=== PATIENT | female | born 1940 | race Hispanic/Latino ===

== ENCOUNTER 2017-04-20 10:09 | Inpatient (IN) | payer MEDICARE, BC ==
--- NOTE | 2017-04-20 10:59 | C.PDOC ---
History Of Present Illness 77 yr old female with PMHx of quadruple bypass 19 years ago, presents to the ER with complaints of palpitations and SOb since morning. Patient states she feels weak and feels like she will pass out. Patient states she took aspirin last night. Patient denies fever, chest pain, nausea, vomiting, abdominal pain, neck pain, weakness or numbness. Time Seen by Provider: 04/20/17 10:22 Chief Complaint (Nursing): Shortness Of Breath History Per: Patient History/Exam Limitations: no limitations Onset/Duration Of Symptoms: Sudden Onset (since morning) Current Symptoms Are (Timing): Still Present Past Medical History Reviewed: Historical Data, Nursing Documentation, Vital Signs Vital Signs: Last Vital Signs Temp 98.4 F 04/22/17 08:16 Pulse 71 04/22/17 08:16 Resp 18 04/22/17 08:16 BP 146/67 04/22/17 08:16 Pulse Ox 100 04/22/17 08:52 - Medical History PMH: Hypercholesterolemia, Hyperlipidemia, Hypothyroidism Surgical History: CABG (1998) Family History: States: No Known Family Hx - Social History Hx Alcohol Use: No Hx Substance Use: No - Immunization History Hx Tetanus Toxoid Vaccination: No Hx Influenza Vaccination: Yes (11/2016) Hx Pneumococcal Vaccination: Yes (2014) Review Of Systems Except As Marked, All Systems Reviewed And Found Negative. Constitutional: Positive for: Weakness. Negative for: Fever Cardiovascular: Positive for: Palpitations. Negative for: Chest Pain Respiratory: Positive for: Shortness of Breath Gastrointestinal: Negative for: Nausea, Vomiting, Abdominal Pain Musculoskeletal: Negative for: Neck Pain Neurological: Negative for: Weakness, Numbness Physical Exam - Physical Exam Appears: Non-toxic, No Acute Distress Skin: Warm, Dry Eye(s): bilateral: Normal Inspection, PERRL, EOMI Oral Mucosa: Moist Chest: Symmetrical, No Tenderness Cardiovascular: Murmur (4/6 MARIE) Respiratory: Normal Breath Sounds, No Rales, No Rhonchi, No Stridor, No Wheezing Gastrointestinal/Abdominal: Normal Exam, Soft, No Tenderness, No Guarding, No Rebound Rectal: Hemorrhoids (external), Other (+ brown stool present, hemoccult positive ) Extremity: Normal ROM, No Swelling Neurological/Psych: Oriented x3, Normal Speech ED Course And Treatment - Laboratory Results Result Diagrams: 04/21/17 13:45 04/21/17 06:18 ECG: Interpreted By Me, Viewed By Me ECG Rhythm: Sinus Rhythm Interpretation Of ECG: Normal intervals. Normal axis. Non specific ST/T wave changes. Rate From EC (BPM) O2 Sat by Pulse Oximetry: 100 (RA) Pulse Ox Interpretation: Normal - Other Rad CXR X-Ray: Viewed By Me, Read By Radiologist Interpretation: PROCEDURE: CHEST RADIOGRAPH, 1 VIEW. HISTORY: chest pain. COMPARISON: None available. FINDINGS: LUNGS: Shallow lung volumes. The central pulmonary vasculature is accentuated - resulting in crowded vasculature. Discoid atelectasis and/or linear fibrosis left mid lung zone noted. Consolidation. PLEURA: No pneumothorax or pleural fluid seen. CARDIOVASCULAR: Mild cardiomegaly. Midline sternotomy and coronary artery bypass clips. The central pulmonary vasculature is accentuated - resulting in crowded vasculature. OSSEOUS STRUCTURES: Bilateral shoulder arthrosis. Midline sternotomy. VISUALIZED UPPER ABDOMEN: Normal. OTHER FINDINGS: None. IMPRESSION: Mild cardiomegaly. Shallow lung volumes limiting its assessment for any concomitant mild pulmonary venous congestion- at minimum crowding inferred. No effusion. Medical Decision Making Medical Decision Making: IMPRESSION: Palpitations, near syncope PLAN: * CXR * EKG * Labs Disposition Discussed With DrCharles: Pallavi Douglas-Katja Counseled Patient/Family Regarding: Studies Performed, Diagnosis - Disposition Disposition: HOSPITALIZED Disposition Time: 12:56 Condition: FAIR - Clinical Impression Clinical Impression: Chest pain, GI bleed, Anemia - Scribe Statement The provider has reviewed the documentation as recorded by the Lo Anthony Provider Attestation: All medical record entries made by the Lo were at my direction and personally dictated by me. I have reviewed the chart and agree that the record accurately reflects my personal performance of the history, physical exam, medical decision making, and the department course for this patient. I have also personally directed, reviewed, and agree with the discharge instructions and disposition.
--- NOTE | 2017-04-20 11:08 | RAD ---
PROCEDURE: CHEST RADIOGRAPH, 1 VIEW HISTORY: chest pain COMPARISON: None available. FINDINGS: LUNGS: Shallow lung volumes The central pulmonary vasculature is accentuated - resulting in crowded vasculature. Discoid atelectasis and/or linear fibrosis left mid lung zone noted. Consolidation. PLEURA: No pneumothorax or pleural fluid seen. CARDIOVASCULAR: Mild cardiomegaly. Midline sternotomy and coronary artery bypass clips. The central pulmonary vasculature is accentuated - resulting in crowded vasculature OSSEOUS STRUCTURES: Bilateral shoulder arthrosis. Midline sternotomy VISUALIZED UPPER ABDOMEN: Normal. OTHER FINDINGS: None. IMPRESSION: Mild cardiomegaly. Shallow lung volumes limiting its assessment for any concomitant mild pulmonary venous congestion- at minimum crowding inferred. No effusion.
[2017-04-20 11:11] LABS: BASO % 0.4 % (0.0-2.0); EOS % 0.3 % (0.0-4.0); LYMPH # 1.3 K/uL (1.0-4.3); LYMPH % 13.9 % (20.0-40.0); MEAN CELL VOLUME 87.7 fL (81.0-99.0); MEAN CORPUSCULAR HEMOGLOBIN 29.3 pg (27.0-31.0); MEAN CORPUSCULAR HGB CONC 33.4 g/dL (33.0-37.0); MONO # 0.5 K/uL (0.0-0.8); MONO % 4.7 % (0.0-10.0); NEUT # 7.8 K/uL (1.8-7.0); NEUT % 80.7 % (50.0-75.0); RBC 2.03 Mil/uL (3.80-5.20); RED CELL DISTRIBUTION WIDTH 15.3 % (11.5-14.5); WHITE BLOOD COUNT 9.7 K/uL (4.8-10.8)
[2017-04-20 11:15] LABS: PROTHROMBIN TIME 11.7 SECONDS (9.7-12.2)
[2017-04-20 11:27] LABS: ALB/GLOB RATIO 1.3 (1.0-2.1); ALBUMIN 3.6 g/dL (3.5-5.0); ALT/SGPT 16 U/L (9-52); AST/SGOT 23 U/L (14-36); BLOOD UREA NITROGEN 34 mg/dL (7-17); CALCIUM 9.4 mg/dl (8.6-10.4); GFR AFRICAN-AMERICAN > 60; GFR NON-AFRICAN AMERICAN 53
[2017-04-20 11:38] LABS: B-TYPE NATRIURETIC PEPTIDE 978 pg/mL (0-900)
[2017-04-20 20:31] LABS: IRON 52 ug/dL (37-170)
[2017-04-20 20:41] LABS: % IRON SATURATION 16 (20-55); TOTAL IRON BINDING CAPACITY 324 ug/dL (250-450)
[2017-04-20 21:05] LABS: FERRITIN 8.8 ng/mL
[2017-04-20 21:11] LABS: CK-MB 8.71 ng/mL (0.0-3.38); TROPONIN I 2.97 ng/mL (0.00-0.120)
--- NOTE | 2017-04-20 22:11 | CP.PCM.HP ---
History of Present Illness - History of Present Illness History of Present Illness: This is a 77 y/o female diabetic, hypertensive and hypothyroid with known history of CAD, s/p CABG many years back and s/p PCI within the last 10 years who was admitted because of 2-day history of tiredness and weakness, worsening shortness of breath on walking short distance. She was brought to the ER and was found to be severely anemic with Hgb of 6. The patient has history of chronic anemia running Hgb of 8-10 which she claims she has had all her life. She denies having any melena though she claims that her stools have been darker than usual but she has also been taking iron pills. She also takes Aspirin every night she claims before she goes to bed. She denies any abdominal pain, nausea, or vomiting. She does admit however that her appetite has not been as good these past two days as she felt full easily. She also denies any chest pain of palpitations. In the ER, she was also found to have an elevated troponin with no acute changes on the EKG. She is admitted for further evaluation and management. Present on Admission - Present on Admission Any Indicators Present on Admission: No History of DVT/PE: No History of Uncontrolled Diabetes: No Urinary Catheter: No Decubitus Ulcer Present: No Review of Systems - Review of Systems All systems: reviewed and no additional remarkable complaints except - Constitutional Constitutional: Fatigue, Weakness - Cardiovascular Cardiovascular: Dyspnea on Exertion - Gastrointestinal Gastrointestinal: Early Satiety - Musculoskeletal Musculoskeletal: Arthralgias, Muscle Cramps Past Patient History - Infectious Disease Hx of Infectious Diseases: None - Past Medical History & Family History Past Medical History?: Yes - Past Social History Smoking Status: Never Smoked Chewing Tobacco Use: No Cigar Use: No Alcohol: None Drugs: Denies Home Situation {Lives}: Alone - CARDIAC Hx Cardiac Disorders: Yes Hx Cardia Arrhythmia: Yes (Sinus Node Dysfunction) Hx Hypercholesterolemia: Yes Hx Hypertension: Yes - PULMONARY Hx Respiratory Disorders: No - NEUROLOGICAL Hx Neurological Disorder: No - HEENT Hx HEENT Problems: No - RENAL Hx Chronic Kidney Disease: No - ENDOCRINE/METABOLIC Hx Endocrine Disorders: Yes Hx Diabetes Mellitus Type 2: Yes Hx Hypothyroidism: Yes - HEMATOLOGICAL/ONCOLOGICAL Hx Blood Disorders: No Hx Anemia: Yes (she reports chronic anemia all her life) - INTEGUMENTARY Hx Dermatological Problems: No - MUSCULOSKELETAL/RHEUMATOLOGICAL Hx Musculoskeletal Disorders: No Hx Falls: No Hx Osteoarthritis: Yes - GASTROINTESTINAL Hx Gastrointestinal Disorders: No - GENITOURINARY/GYNECOLOGICAL Hx Genitourinary Disorders: No - PSYCHIATRIC Hx Psychophysiologic Disorder: No Hx Substance Use: No - SURGICAL HISTORY Hx Surgeries: Yes Hx Angioplasty: Yes Hx Cardiac Catheterization: Yes Hx Coronary Artery Bypass Graft: Yes (1998) Hx Coronary Stent: Yes - ANESTHESIA Hx Anesthesia: Yes Hx Anesthesia Reactions: No Hx Malignant Hyperthermia: No Has any member of the family had a problem w/ anesthesia?: No Meds Allergies/Adverse Reactions: Allergies Allergy/AdvReac Type Severity Reaction Status Date / Time No Known Allergies Allergy Verified 04/20/17 10:23 Physical Exam - Constitutional Appears: No Acute Distress - Head Exam Head Exam: NORMAL INSPECTION - Eye Exam Pupil Exam: PERRL - ENT Exam ENT Exam: Mucous Membranes Moist - Neck Exam Neck exam: Positive for: Normal Inspection - Respiratory Exam Respiratory Exam: Clear to Auscultation Bilateral, NORMAL BREATHING PATTERN - Cardiovascular Exam Cardiovascular Exam: REGULAR RHYTHM, +S1, +S2, Systolic Murmur - GI/Abdominal Exam GI & Abdominal Exam: Normal Bowel Sounds, Soft - Rectal Exam Additional comments: + occult blood - Neurological Exam Neurological exam: Alert, CN II-XII Intact, Normal Gait, Oriented x3 - Psychiatric Exam Psychiatric exam: Normal Affect, Normal Mood Results - Vital Signs Recent Vital Signs: Last Vital Signs Temp 98.4 F 04/20/17 21:01 Pulse 67 04/20/17 21:01 Resp 18 04/20/17 21:01 BP 133/68 04/20/17 21:01 Pulse Ox 96 04/20/17 20:03 - Labs Result Diagrams: 04/20/17 11:01 04/20/17 11:01 Labs: Laboratory Results - last 24 hr 04/20/17 04/20/17 04/20/17 11:01 11:01 11:01 WBC 9.7 RBC 2.03 L Hgb 6.0 L* Hct 17.8 L MCV 87.7 MCH 29.3 MCHC 33.4 RDW 15.3 H Plt Count 307 MPV 7.0 L Neut % (Auto) 80.7 H Lymph % (Auto) 13.9 L [place] % (Auto) 4.7 Eos % (Auto) 0.3 Baso % (Auto) 0.4 Neut # (Auto) 7.8 H Lymph # (Auto) 1.3 [place] # (Auto) 0.5 Eos # (Auto) 0.0 Baso # (Auto) 0.0 PT 11.7 INR 1.0 APTT 28 Sodium 137 Potassium 5.3 H Chloride 101 Carbon Dioxide 22 Anion Gap 19 BUN 34 H Creatinine 1.0 Est GFR ( Amer) > 60 Est GFR (Non-Af Amer) 53 POC Glucose (mg/dL) Random Glucose 185 H Calcium 9.4 Iron TIBC % Saturation Ferritin Total Bilirubin < 0.1 L AST 23 ALT 16 Alkaline Phosphatase 53 Total Creatine Kinase CK-MB (Mass) Troponin I 0.5510 H* NT-Pro-B Natriuret Pep 978 H Total Protein 6.4 Albumin 3.6 Globulin 2.8 Albumin/Globulin Ratio 1.3 Vitamin B12 TSH 3rd Generation 3.32 Blood Type Blood Type Confirm Antibody Screen 04/20/17 04/20/17 04/20/17 12:27 20:10 20:10 WBC RBC Hgb Hct MCV MCH MCHC RDW Plt Count MPV Neut % (Auto) Lymph % (Auto) [place] % (Auto) Eos % (Auto) Baso % (Auto) Neut # (Auto) Lymph # (Auto) [place] # (Auto) Eos # (Auto) Baso # (Auto) PT INR APTT Sodium Potassium Chloride Carbon Dioxide Anion Gap BUN Creatinine Est GFR ( Amer) Est GFR (Non-Af Amer) POC Glucose (mg/dL) Random Glucose Calcium Iron 52 TIBC 324 % Saturation 16 L Ferritin Total Bilirubin AST ALT Alkaline Phosphatase Total Creatine Kinase 47 CK-MB (Mass) 8.71 H Troponin I 2.9700 H* NT-Pro-B Natriuret Pep Total Protein Albumin Globulin Albumin/Globulin Ratio Vitamin B12 TSH 3rd Generation Blood Type A POSITIVE Blood Type Confirm A POSITIVE Antibody Screen Negative 04/20/17 04/20/17 20:10 21:24 WBC RBC Hgb Hct MCV MCH MCHC RDW Plt Count MPV Neut % (Auto) Lymph % (Auto) [place] % (Auto) Eos % (Auto) Baso % (Auto) Neut # (Auto) Lymph # (Auto) [place] # (Auto) Eos # (Auto) Baso # (Auto) PT INR APTT Sodium Potassium Chloride Carbon Dioxide Anion Gap BUN Creatinine Est GFR ( Amer) Est GFR (Non-Af Amer) POC Glucose (mg/dL) 114 H Random Glucose Calcium Iron TIBC % Saturation Ferritin 8.8 Total Bilirubin AST ALT Alkaline Phosphatase Total Creatine Kinase CK-MB (Mass) Troponin I NT-Pro-B Natriuret Pep Total Protein Albumin Globulin Albumin/Globulin Ratio Vitamin B12 869 TSH 3rd Generation Blood Type Blood Type Confirm Antibody Screen Assessment & Plan - Assessment and Plan (Free Text) Assessment: 1) Severe Anemia most probably due to GI Bleed. Patient has history of chronic anemia asymptomatic until 2 days ago. Sudden further drop in the H/H most likely due to GI Bleed, ?ASA induced, Bleeding Ulcer or Hemorrhagic gastritis. Will get GI and hematology evaluation. 2) Elevated troponin- noted 2nd test to have increased despite patient's absence of chest pain. Findings of increasing troponin, EKG changes of ischemia in patient with known history of severe CAD, consistent with NSTEMI. Will need to schedule endoscopy at a later time. 3) Diabetes Mellitus- on Accucheck and restarted on Metformin. 4) Hypertension- on antihypertensive meds to control same. 5) Hyperlipidemia- on statin.
[2017-04-21 07:00] LABS: ALB/GLOB RATIO 1.1 (1.0-2.1); ALBUMIN 3.3 g/dL (3.5-5.0); ALT/SGPT 26 U/L (9-52); AST/SGOT 33 U/L (14-36); BLOOD UREA NITROGEN 29 mg/dL (7-17); CALCIUM 9.2 mg/dl (8.6-10.4); GFR AFRICAN-AMERICAN > 60; GFR NON-AFRICAN AMERICAN 53
[2017-04-21] MEDS: Levothyroxine 112 MCG TAB PO SCH (07:00)
[2017-04-21 07:10] LABS: CK-MB 3.42 ng/mL (0.0-3.38)
[2017-04-21 07:15] LABS: MEAN CELL VOLUME 86.7 fL (81.0-99.0); MEAN CORPUSCULAR HEMOGLOBIN 30.3 pg (27.0-31.0); MEAN PLATELET VOLUME 7.3 fL (7.2-11.7); RBC 2.85 Mil/uL (3.80-5.20); RED CELL DISTRIBUTION WIDTH 14.8 % (11.5-14.5); WHITE BLOOD COUNT 10.5 K/uL (4.8-10.8)
[2017-04-21 07:19] LABS: HEMOGLOBIN 8.6 g/dL (11.0-16.0)
[2017-04-21] MEDS: Metoprolol Succinate 25 mg XL Tab PO SCH (09:18)
[2017-04-21] MEDS: Ferric Sodium Gluconat Complex 62.5 mg/5 ml Vial IVPB SCH (09:19)
[2017-04-21] MEDS: Calcium-Vit D 500 mg-200 Units Tab UD PO SCH (09:21)
[2017-04-21] MEDS ORDERED: Folic Acid/Ascorbic Acid/Ferrous Sulfate 1 Tab PO SCH (10:00)
[2017-04-21 13:51] LABS: HEMOGLOBIN 8.8 g/dL (11.0-16.0)
--- NOTE | 2017-04-21 14:08 | CP.PCM.CON ---
History of Present Illness - History of Present Illness History of Present Illness: This is a 77 year old woman with anemia. Patient has a history of CAD, S/P CABG 19 years ago. She states that she had a colonoscopy five years ago which showed no significant abnormalities. She presented to the ER 04/20/2017 with a two day history of weakness, lightheadedness, and shortness of breath on exertion. In the ER, she was found to be severely anemic with Hgb of 6. Of note, the patient has history of chronic anemia with HGB in the range of 8-10. She denies having rectal bleeding , but the stools have been darker than usual in the past two weeks. She takes iron regularly, but it does not cause consistently dark stools. She denies having abdominal pain, nausea, vomiting, heartburn, difficulty swallowing and loss of weight. Her appetite has been poor for the past two days. Stool for occult blood was checked in the ER and was positive. Troponin angie to 2.97 overnight, and CPK-MB to 8.7. The ferritin was low at 8.8, and the B12 level was normal. Folate level is pending. Review of Systems - Review of Systems All systems: reviewed and no additional remarkable complaints except - Constitutional Constitutional: Fatigue, Weakness - Cardiovascular Cardiovascular: Dyspnea on Exertion - Gastrointestinal Gastrointestinal: Melena. absent: Abdominal Pain, Constipation, Diarrhea, Dysphagia, Heartburn, Nausea, Vomiting Past Patient History - Infectious Disease Hx of Infectious Diseases: None - Past Medical History & Family History Past Medical History?: Yes - Past Social History Smoking Status: Never Smoked Chewing Tobacco Use: No Cigar Use: No Alcohol: None Drugs: Denies Home Situation {Lives}: Alone - CARDIAC Hx Cardiac Disorders: Yes Hx Cardia Arrhythmia: Yes (Sinus Node Dysfunction) Hx Hypercholesterolemia: Yes Hx Hypertension: Yes - PULMONARY Hx Respiratory Disorders: No - NEUROLOGICAL Hx Neurological Disorder: No - HEENT Hx HEENT Problems: No - RENAL Hx Chronic Kidney Disease: No - ENDOCRINE/METABOLIC Hx Endocrine Disorders: Yes Hx Diabetes Mellitus Type 2: Yes Hx Hypothyroidism: Yes - HEMATOLOGICAL/ONCOLOGICAL Hx Blood Disorders: No Hx Anemia: Yes (she reports chronic anemia all her life) - INTEGUMENTARY Hx Dermatological Problems: No - MUSCULOSKELETAL/RHEUMATOLOGICAL Hx Musculoskeletal Disorders: No Hx Falls: No Hx Osteoarthritis: Yes - GASTROINTESTINAL Hx Gastrointestinal Disorders: No - GENITOURINARY/GYNECOLOGICAL Hx Genitourinary Disorders: No - PSYCHIATRIC Hx Psychophysiologic Disorder: No Hx Substance Use: No - SURGICAL HISTORY Hx Surgeries: Yes Hx Angioplasty: Yes Hx Cardiac Catheterization: Yes Hx Coronary Artery Bypass Graft: Yes (1998) Hx Coronary Stent: Yes - ANESTHESIA Hx Anesthesia: Yes Hx Anesthesia Reactions: No Hx Malignant Hyperthermia: No Has any member of the family had a problem w/ anesthesia?: No Meds Allergies/Adverse Reactions: Allergies Allergy/AdvReac Type Severity Reaction Status Date / Time No Known Allergies Allergy Verified 04/20/17 10:23 - Medications Medications: Current Medications Ascorbic Ac/Ferrous Sulf/Folic Acid (Iberet-Folic 500) 1 ter PO DAILY [facility] Calcium/Vitamin D (Oyster Shell Calcium/Vitamin D 500 Mg-200 Iu) 1 tab PO DAILY [facility] Last Admin: 04/21/17 09:21 Dose: 1 tab Ferric Sodium Gluconate Complex (Ferrlecit) 125 mg IVPB DAILY [facility] Stop: 04/23/17 10:01 Last Admin: 04/21/17 09:19 Dose: 125 mg Levothyroxine Sodium (Synthroid) 112 mcg PO DAILY@0630 [facility] Last Admin: 04/21/17 07:00 Dose: 112 mcg Losartan Potassium (Cozaar) 100 mg PO DAILY [facility] Last Admin: 04/21/17 09:19 Dose: 100 mg Metformin HCl (Glucophage) 1,000 mg PO DAILY [facility] Last Admin: 04/21/17 09:18 Dose: 1,000 mg Metoprolol Succinate (Toprol Xl) 25 mg PO DAILY [facility] Last Admin: 04/21/17 09:18 Dose: 25 mg Multivitamins (Hexavitamin) 1 tab PO DAILY [facility] Pantoprazole Sodium (Protonix Inj) 40 mg IVP DAILY [facility] Last Admin: 04/21/17 09:17 Dose: 40 mg Rosuvastatin Calcium (Crestor) 5 mg PO HS [facility] Last Admin: 04/20/17 21:54 Dose: 5 mg Physical Exam - Constitutional Appears: No Acute Distress - Head Exam Head Exam: ATRAUMATIC, NORMOCEPHALIC - Eye Exam Eye Exam: EOMI, PERRL - Neck Exam Neck exam: Negative for: Lymphadenopathy, Thyromegaly - Respiratory Exam Respiratory Exam: NORMAL BREATHING PATTERN. absent: Rales, Rhonchi, Wheezes - Cardiovascular Exam Cardiovascular Exam: REGULAR RHYTHM, +S1, +S2. absent: Gallop, Rubs, Systolic Murmur - GI/Abdominal Exam GI & Abdominal Exam: Normal Bowel Sounds, Soft. absent: Mass, Organomegaly, Tenderness - Rectal Exam Rectal Exam: Deferred - Extremities Exam Extremities exam: Negative for: calf tenderness, pedal edema Results - Vital Signs Recent Vital Signs: Last Vital Signs Temp 98.5 F 04/21/17 08:56 Pulse 68 04/21/17 08:56 Resp 20 04/21/17 08:56 BP 121/62 04/21/17 08:56 Pulse Ox 96 04/21/17 08:56 - Labs Result Diagrams: 04/21/17 13:45 04/21/17 06:18 Labs: Laboratory Results - last 24 hr 04/20/17 04/20/17 04/20/17 12:27 20:10 20:10 WBC RBC Hgb Hct MCV MCH MCHC RDW Plt Count MPV Sodium Potassium Chloride Carbon Dioxide Anion Gap BUN Creatinine Est GFR ( Amer) Est GFR (Non-Af Amer) POC Glucose (mg/dL) Random Glucose Hemoglobin A1c Calcium Iron 52 TIBC 324 % Saturation 16 L Ferritin Total Bilirubin AST ALT Alkaline Phosphatase Total Creatine Kinase 47 CK-MB (Mass) 8.71 H Troponin I 2.9700 H* Total Protein Albumin Globulin Albumin/Globulin Ratio Vitamin B12 TSH 3rd Generation Blood Type A POSITIVE Blood Type Confirm A POSITIVE Antibody Screen Negative 04/20/17 04/20/17 04/21/17 20:10 21:24 06:11 WBC RBC Hgb Hct MCV MCH MCHC RDW Plt Count MPV Sodium Potassium Chloride Carbon Dioxide Anion Gap BUN Creatinine Est GFR ( Amer) Est GFR (Non-Af Amer) POC Glucose (mg/dL) 114 H 125 H Random Glucose Hemoglobin A1c Calcium Iron TIBC % Saturation Ferritin 8.8 Total Bilirubin AST ALT Alkaline Phosphatase Total Creatine Kinase CK-MB (Mass) Troponin I Total Protein Albumin Globulin Albumin/Globulin Ratio Vitamin B12 869 TSH 3rd Generation Blood Type Blood Type Confirm Antibody Screen 04/21/17 04/21/17 04/21/17 06:18 06:18 06:18 WBC 10.5 RBC 2.85 L Hgb 8.6 L D Hct 24.7 L MCV 86.7 MCH 30.3 MCHC 35.0 RDW 14.8 H Plt Count 300 MPV 7.3 Sodium 137 Potassium 4.4 Chloride 104 Carbon Dioxide 25 Anion Gap 12 BUN 29 H Creatinine 1.0 Est GFR ( Amer) > 60 Est GFR (Non-Af Amer) 53 POC Glucose (mg/dL) Random Glucose 114 H Hemoglobin A1c 6.0 Calcium 9.2 Iron TIBC % Saturation Ferritin 24.0 Total Bilirubin 1.3 AST 33 ALT 26 Alkaline Phosphatase 49 Total Creatine Kinase 35 CK-MB (Mass) 3.42 H Troponin I 2.4200 H* Total Protein 6.2 L Albumin 3.3 L Globulin 2.9 Albumin/Globulin Ratio 1.1 Vitamin B12 479 TSH 3rd Generation 4.25 Blood Type Blood Type Confirm Antibody Screen 04/21/17 04/21/17 11:24 13:45 WBC RBC Hgb 8.8 L Hct 25.2 L MCV MCH MCHC RDW Plt Count MPV Sodium Potassium Chloride Carbon Dioxide Anion Gap BUN Creatinine Est GFR ( Amer) Est GFR (Non-Af Amer) POC Glucose (mg/dL) 117 H Random Glucose Hemoglobin A1c Calcium Iron TIBC % Saturation Ferritin Total Bilirubin AST ALT Alkaline Phosphatase Total Creatine Kinase CK-MB (Mass) Troponin I Total Protein Albumin Globulin Albumin/Globulin Ratio Vitamin B12 TSH 3rd Generation Blood Type Blood Type Confirm Antibody Screen Assessment & Plan (1) Iron deficiency anemia Assessment and Plan: Patient has iron deficiency anemia on aspirin therapy. Rule out peptic ulcer, colon lesion. Work up should include EGD and colonoscopy, which will be scheduled when patient is cleared by Cardiology following NSTMI. These may be performed as an outpatient. Status: Acute
[2017-04-21 14:28] LABS: CK-MB 2.55 ng/mL (0.0-3.38); TROPONIN I 2.09 ng/mL (0.00-0.120)
--- NOTE | 2017-04-21 17:19 | CP.PCM.PN ---
Subjective - Date & Time of Evaluation Date of Evaluation: 04/21/17 Time of Evaluation: 16:45 - Subjective Subjective: Patient comfortable Had a bowel movement today passing very dark (?black) stools Received 2 units of blood transfusion yesterday and lates H/H 8.8/25.2 GI and Hematology consultation noted and appreciated Objective - Vital Signs/Intake and Output Vital Signs (last 24 hours): Temp Pulse Resp BP Pulse Ox 98.6 F 65 20 142/63 95 04/21/17 15:19 04/21/17 15:19 04/21/17 15:19 04/21/17 15:19 04/21/17 15:19 Intake and Output: 04/21/17 04/21/17 06:59 18:59 Intake Total 325 Balance 325 - Medications Medications: Current Medications Ascorbic Ac/Ferrous Sulf/Folic Acid (Iberet-Folic 500) 1 ter PO DAILY [facility] Calcium/Vitamin D (Oyster Shell Calcium/Vitamin D 500 Mg-200 Iu) 1 tab PO DAILY [facility] Last Admin: 04/21/17 09:21 Dose: 1 tab Ferric Sodium Gluconate Complex (Ferrlecit) 125 mg IVPB DAILY [facility] Stop: 04/23/17 10:01 Last Admin: 04/21/17 09:19 Dose: 125 mg Levothyroxine Sodium (Synthroid) 112 mcg PO DAILY@0630 [facility] Last Admin: 04/21/17 07:00 Dose: 112 mcg Losartan Potassium (Cozaar) 100 mg PO DAILY [facility] Last Admin: 04/21/17 09:19 Dose: 100 mg Metformin HCl (Glucophage) 1,000 mg PO DAILY [facility] Last Admin: 04/21/17 09:18 Dose: 1,000 mg Metoprolol Succinate (Toprol Xl) 25 mg PO DAILY [facility] Last Admin: 04/21/17 09:18 Dose: 25 mg Multivitamins (Hexavitamin) 1 tab PO DAILY [facility] Pantoprazole Sodium (Protonix Inj) 40 mg IVP DAILY [facility] Last Admin: 04/21/17 09:17 Dose: 40 mg Rosuvastatin Calcium (Crestor) 5 mg PO HS [facility] Last Admin: 04/20/17 21:54 Dose: 5 mg - Labs Labs: 04/21/17 13:45 04/21/17 06:18 PT 11.7 SECONDS (9.7-12.2) 04/20/17 11:01 INR 1.0 04/20/17 11:01 APTT 28 SECONDS (21-34) 04/20/17 11:01 - Constitutional Appears: No Acute Distress - Head Exam Head Exam: NORMAL INSPECTION - Neck Exam Neck Exam: Normal Inspection - Respiratory Exam Respiratory Exam: Clear to Ausculation Bilateral, NORMAL BREATHING PATTERN - Cardiovascular Exam Cardiovascular Exam: REGULAR RHYTHM, +S1, +S2 - GI/Abdominal Exam GI & Abdominal Exam: Soft, Normal Bowel Sounds - Extremities Exam Extremities Exam: Full ROM, Normal Inspection - Neurological Exam Neurological Exam: Alert, Awake, Oriented x3 - Skin Skin Exam: Dry, Intact, Normal Color, Warm Assessment and Plan - Assessment and Plan (Free Text) Assessment: 1) Severe Anemia- repeat H/H 8.8/25.2. there seems to be no active bleeding at this time but will check again tomorrow. GI consultation noted. Patient will need upper and lower endoscopy. may schedule outpatient. Hematology consultation noted. IV Iron ordered and given. 2) CAD- Elevated troponin- 3rd set still elevated but trending down. Ordered echocardiogram also for further evaluation 3) Diabetes Mellitus- on Accucheck and restarted on Metformin. Diet advanced 4) Hypertension- controlled 5) Hyperlipidemia- on statin.
--- NOTE | 2017-04-21 18:32 | CON ---
DATE: This is a 77-year-old woman with anemia. The patient said that she has been feeling very weak recently and having weakness of the legs and shortness of breath and presented to the hospital. She says that she takes iron pills as an outpatient for a long time, I am not too sure if she now ____. PHYSICAL EXAMINATION: SKIN: No petechiae. No bruises. HEENT: Anicteric. NODES: Nonpalpable in the axillary, cervical, supraclavicular or inguinal regions. LUNGS: Clear at present. No vertebral tenderness. HEART: S1 and S2. ABDOMEN: Shows no liver, no spleen, no tenderness. No rebound. EXTREMITIES: No edema. CENTRAL NERVOUS SYSTEM: No focal finding. The hemoglobin was about 8. The ferritin levels were low. The iron saturation was low. She has been put on p.o. iron, but I am going to give her intravenous Ferrlecit 125 mg today, but she is still in the hospital over the weekend. At this point, I think we will wait and see if there is a GI cause of this anemia. I told the daughter that if they did not find the GI cause, then they can make an appointment to see me for any further reasons, but right now it is going to end with GI. She feels much better after receiving 2 packs of red cells. Julian Last MD 8:43:01
[2017-04-21] MEDS: Multiple Vitamins Tab PO SCH (20:00)
[2017-04-22] MEDS: Levothyroxine 112 MCG TAB PO SCH (06:08)
[2017-04-22 08:16] VITALS: BP 146/67; PULSE 71; RESP 18; TEMP 98.4
--- NOTE | 2017-04-22 08:30 | CARD ---
APPROVED REPORT EXAM: Two-dimensional and M-mode echocardiogram with Doppler and color Doppler. Other Information Quality : GoodRhythm : INDICATION Dyspnea Cardiac Disease: CAD Chest Pain Non STEMI CARDIAC ARRYTHMIA Surgery/Intervention CABG: RISK FACTORS Hypertension Hyperlipidemia Diabetes 2D DIMENSIONS IVSd1.2 (0.7-1.1cm)LVDd3.8 (3.9-5.9cm) LVOT Diameter2.1 (1.8-2.4cm)PWd1.0 (0.7-1.1cm) LVDs2.6 (2.5-4.0cm)FS (%) 30.8 % LVEF (%)59.2 (>50%) M-Mode DIMENSIONS Left Atrium (MM)3.88 (2.5-4.0cm)Aortic Root2.86 (2.2-3.7cm) Aortic Cusp Exc.1.85 (1.5-2.0cm) Aortic Valve AoV Peak Vbiaxsho798.5cm/sAoV VTI85.4cmAO Peak GR.49mmHg LVOT Peak Guzzqdhm153.6cm/sLVOT VTI24.71cmAO Mean GR.31mmHg RAZ (VMAX)1.07iq7NMD (VTI)1.37iz0WC P 1/2 Udhd338pc Mitral Valve MV E Stdfvsgz458.0cm/sMV A Qihifksv92.8cm/sE/A ratio1.9 TDI E/Lateral E'0.0E/Medial E'0.0 Tricuspid Valve TR Peak Vtewtllg680gv/sTR Peak Gr.25unXfORKF99szIg LEFT VENTRICLE The left ventricle is normal size. There is borderline to mild asymmetric left ventricular hypertrophy. Left ventricle systolic function is normal. The Ejection Fraction is 55-60%. Nno regional wall motion abnormalities noted. The left ventricular diastolic function is normal. No left ventricle thrombus noted on this study. RIGHT VENTRICLE The right ventricle is normal size. The right ventricular systolic function is normal. ATRIA The left atrium size is normal. The right atrium size is normal. AORTIC VALVE The aortic valve is severely calcified. The aortic valve is trileaflet. There is mild aortic regurgitation. There is moderate valvular aortic stenosis. Calculated aortic valve area is 1.02 cm2 with maximum pressure gradient of 49 mmHg and mean pressure gradient of 31 mmHg. Cannot exclude aortic valvular vegetation. MITRAL VALVE Mitral annular calcification is moderate. There is no evidence of mitral valve prolapse. There is no mitral valve stenosis. Mitral regurgitation is mild to moderate. TRICUSPID VALVE The tricuspid valve is normal in structure. There is moderate tricuspid regurgitation. Right ventricular systolic pressure is estimated at 50-60 mmHg. There is moderate pulmonary hypertension. There is no tricuspid valve prolapse or vegetation. There is no tricuspid valve stenosis. PULMONIC VALVE The pulmonary valve is normal in structure. There is no pulmonic valvular regurgitation. There is no pulmonic valvular stenosis. GREAT VESSELS The aortic root is normal in size. The IVC collapses <50% with inspiration. PERICARDIAL EFFUSION There is no pericardial effusion. There is no pleural effusion. <Conclusion> There is borderline to mild asymmetric left ventricular hypertrophy. Left ventricle systolic function is normal. The Ejection Fraction is 55-60%. The left ventricular diastolic function is normal. The left atrium size is normal. The right atrium size is normal. The right ventricle is normal size. The right ventricular systolic function is normal. There is mild aortic regurgitation. There is moderate valvular aortic stenosis. Calculated aortic valve area is 1.02 cm2 with maximum pressure gradient of 49 mmHg and mean pressure gradient of 31 mmHg. Mitral regurgitation is mild to moderate. There is moderate tricuspid regurgitation. There is moderate pulmonary hypertension.
[2017-04-22 08:52] VITALS: O2SAT 100
--- NOTE | 2017-04-22 08:59 | CARD ---
APPROVED REPORT EKG Measurement Heart [id number] <Conclusion> Normal sinus rhythm ST & T wave abnormality, consider lateral ischemia Abnormal ECG
--- NOTE | 2017-04-22 08:59 | CARD ---
APPROVED REPORT EKG Measurement Heart [id number] <Conclusion> Normal sinus rhythm ST & T wave abnormality, consider lateral ischemia Abnormal ECG
[2017-04-22 09:12] LABS: BASO % 0.4 % (0.0-2.0); EOS # 0.1 K/uL (0.0-0.7); EOS % 0.8 % (0.0-4.0); HEMOGLOBIN 8.5 g/dL (11.0-16.0); LYMPH # 1.6 K/uL (1.0-4.3); LYMPH % 16.4 % (20.0-40.0); MEAN CELL VOLUME 87.7 fL (81.0-99.0); MEAN CORPUSCULAR HEMOGLOBIN 30.4 pg (27.0-31.0); MEAN CORPUSCULAR HGB CONC 34.7 g/dL (33.0-37.0); MEAN PLATELET VOLUME 7.2 fL (7.2-11.7); MONO % 10.6 % (0.0-10.0); NEUT % 71.8 % (50.0-75.0); RBC 2.81 Mil/uL (3.80-5.20); WHITE BLOOD COUNT 9.7 K/uL (4.8-10.8)
[2017-04-22 09:34] LABS: CK-MB 1.19 ng/mL (0.0-3.38)
[2017-04-22 09:36] LABS: ALB/GLOB RATIO 1.1 (1.0-2.1); ALBUMIN 3.4 g/dL (3.5-5.0); ALT/SGPT 19 U/L (9-52); AST/SGOT 29 U/L (14-36); BLOOD UREA NITROGEN 28 mg/dL (7-17); CALCIUM 9.4 mg/dl (8.6-10.4); GFR AFRICAN-AMERICAN > 60; GFR NON-AFRICAN AMERICAN > 60
[2017-04-22] MEDS: Multiple Vitamins Tab PO SCH (10:12)
[2017-04-22] MEDS: Metoprolol Succinate 25 mg XL Tab PO SCH (10:12)
[2017-04-22] MEDS: Ferric Sodium Gluconat Complex 62.5 mg/5 ml Vial IVPB SCH (10:13)
[2017-04-22] MEDS: Calcium-Vit D 500 mg-200 Units Tab UD PO SCH (10:15)
--- NOTE | 2017-04-22 10:43 | CP.PCM.PN ---
Subjective - Date & Time of Evaluation Date of Evaluation: 04/22/17 Time of Evaluation: 10:40 - Subjective Subjective: F/u anemia Covering Dr Gini Daughter Alexandria and Rn present Denies CP, SOB, fever, chills, abdo pain, RB, hematemesis, hemoptysis, hematuria , cough Dark stool- on iron. Objective - Vital Signs/Intake and Output Vital Signs (last 24 hours): Temp Pulse Resp BP Pulse Ox 98.4 F 71 18 146/67 100 04/22/17 08:16 04/22/17 08:16 04/22/17 08:16 04/22/17 08:16 04/22/17 08:53 - Medications Medications: Current Medications Ascorbic Ac/Ferrous Sulf/Folic Acid (Iberet-Folic 500) 1 ter PO DAILY [facility] Last Admin: 04/22/17 10:12 Dose: 1 ter Calcium/Vitamin D (Oyster Shell Calcium/Vitamin D 500 Mg-200 Iu) 1 tab PO DAILY [facility] Last Admin: 04/22/17 10:15 Dose: 1 tab Ferric Sodium Gluconate Complex (Ferrlecit) 125 mg IVPB DAILY [facility] Stop: 04/23/17 10:01 Last Admin: 04/22/17 10:13 Dose: 125 mg Levothyroxine Sodium (Synthroid) 112 mcg PO DAILY@0630 [facility] Last Admin: 04/22/17 06:08 Dose: 112 mcg Losartan Potassium (Cozaar) 100 mg PO DAILY [facility] Last Admin: 04/22/17 10:12 Dose: 100 mg Metformin HCl (Glucophage) 1,000 mg PO DAILY [facility] Last Admin: 04/22/17 10:12 Dose: 1,000 mg Metoprolol Succinate (Toprol Xl) 25 mg PO DAILY [facility] Last Admin: 04/22/17 10:12 Dose: 25 mg Multivitamins (Hexavitamin) 1 tab PO DAILY [facility] Last Admin: 04/22/17 10:12 Dose: 1 tab Pantoprazole Sodium (Protonix Inj) 40 mg IVP DAILY [facility] Last Admin: 04/22/17 10:12 Dose: 40 mg Rosuvastatin Calcium (Crestor) 5 mg PO HS [facility] Last Admin: 04/21/17 21:04 Dose: 5 mg - Labs Labs: 04/22/17 08:53 04/22/17 08:53 PT 11.7 SECONDS (9.7-12.2) 03/01/18 11:01 INR 1.0 04/20/17 11:01 APTT 28 SECONDS (21-34) 04/20/17 11:01 - Constitutional Appears: Well - Respiratory Exam Respiratory Exam: Clear to Ausculation Bilateral - Cardiovascular Exam Cardiovascular Exam: RRR - GI/Abdominal Exam GI & Abdominal Exam: Soft, Normal Bowel Sounds. absent: Guarding, Tenderness, Mass - Extremities Exam Extremities Exam: absent: Calf Tenderness - Neurological Exam Neurological Exam: Alert, Awake, Oriented x3 Assessment and Plan (1) Diabetes mellitus Status: Acute (2) Anemia Assessment & Plan: Chronic x yrs. + FH anemia and celiac. Consider celiac, AVMs, ulcer. Was taking ASA 325 mg qhs recently. Will need EGD and colon when cardicac stable. Consider capsule study in future. Check sm bowel at EGD. Check Hb. PPI Status: Acute (3) Chest pain Status: Acute (4) GI bleed Status: Acute (5) Iron deficiency anemia Status: Acute
--- NOTE | 2017-04-22 11:55 | CP.PCM.DIS ---
Provider - Provider Date of Admission: 04/20/17 12:53 Attending physician: Pallavi Infante MD Primary care physician: Justin Infante Consults: Arlette Rubalcava; Justin Last Time Spent in preparation of Discharge (in minutes): 45 Diagnosis - Discharge Diagnosis (1) GI bleed Status: Resolved Comment: H/H stable since admission after transfusion. GI following patient and will follow OP, too. Will continue with Protonix. (2) Non-ST elevation (NSTEMI) myocardial infarction Status: Resolved Comment: Patient off ASA and any anticoagulant due to bleed. Will follow up in the office and consider starting another blood thinner without GI side effects. (3) Aortic stenosis, severe Status: Chronic Comment: Echocardiogram reviewed- shows significant that will need further evaluation with cardiac cath. Discussed with family and will follow this further OP. (4) Iron deficiency anemia Status: Chronic Comment: Received IV iron ordered by [facility]. Advised to follow with [facility] OP. (5) Diabetes mellitus Status: Chronic Comment: controlled on current meds (6) Hypertension associated with diabetes Status: Chronic Comment: controlled on current meds. (7) Hyperlipidemia associated with type 2 diabetes mellitus Status: Chronic Comment: controlled on current med. Hospital Course - Lab Results Lab Results: Most Recent Lab Values WBC 9.7 K/uL (4.8-10.8) 04/22/17 08:53 RBC 2.81 Mil/uL (3.80-5.20) L 04/22/17 08:53 Hgb 8.5 g/dL (11.0-16.0) L 04/22/17 08:53 Hct 24.6 % (34.0-47.0) L 04/22/17 08:53 MCV 87.7 fL (81.0-99.0) 04/22/17 08:53 MCH 30.4 pg (27.0-31.0) 04/22/17 08:53 MCHC 34.7 g/dL (33.0-37.0) 04/22/17 08:53 RDW 15.0 % (11.5-14.5) H 04/22/17 08:53 Plt Count 306 K/uL (130-400) 04/22/17 08:53 MPV 7.2 fL (7.2-11.7) 04/22/17 08:53 Neut % (Auto) 71.8 % (50.0-75.0) 04/22/17 08:53 Lymph % (Auto) 16.4 % (20.0-40.0) L 04/22/17 08:53 Ceiba % (Auto) 10.6 % (0.0-10.0) H 04/22/17 08:53 Eos % (Auto) 0.8 % (0.0-4.0) 04/22/17 08:53 Baso % (Auto) 0.4 % (0.0-2.0) 04/22/17 08:53 Neut # (Auto) 7.0 K/uL (1.8-7.0) 04/22/17 08:53 Lymph # (Auto) 1.6 K/uL (1.0-4.3) 04/22/17 08:53 Ceiba # (Auto) 1.0 K/uL (0.0-0.8) H 04/22/17 08:53 Eos # (Auto) 0.1 K/uL (0.0-0.7) 04/22/17 08:53 Baso # (Auto) 0.0 K/uL (0.0-0.2) 04/22/17 08:53 Retic Count 3.7 % (0.5-1.5) H 04/21/17 17:15 PT 11.7 SECONDS (9.7-12.2) 04/20/17 11:01 INR 1.0 04/20/17 11:01 APTT 28 SECONDS (21-34) 04/20/17 11:01 Sodium 138 mmol/L (132-148) 04/22/17 08:53 Potassium 4.4 mmol/L (3.6-5.2) 04/22/17 08:53 Chloride 103 mmol/L (98-107) 04/22/17 08:53 Carbon Dioxide 24 mmol/L (22-30) 04/22/17 08:53 Anion Gap 15 (10-20) 04/22/17 08:53 BUN 28 mg/dL (7-17) H 04/22/17 08:53 Creatinine 0.9 mg/dL (0.7-1.2) 04/22/17 08:53 Est GFR ( Amer) > 60 04/22/17 08:53 Est GFR (Non-Af Amer) > 60 04/22/17 08:53 POC Glucose (mg/dL) 119 mg/dL (65-110) H 04/22/17 06:13 Random Glucose 122 mg/dL (65-105) H 04/22/17 08:53 Hemoglobin A1c 6.0 % (4.2-6.5) 04/21/17 06:18 Calcium 9.4 mg/dl (8.6-10.4) 04/22/17 08:53 Iron 52 ug/dL (37-170) 04/20/17 20:10 TIBC 324 ug/dL (250-450) 04/20/17 20:10 % Saturation 16 (20-55) L 04/20/17 20:10 Ferritin 24.0 ng/mL 04/21/17 06:18 Total Bilirubin 0.5 mg/dL (0.2-1.3) 04/22/17 08:53 AST 29 U/L (14-36) 04/22/17 08:53 ALT 19 U/L (9-52) 04/22/17 08:53 Alkaline Phosphatase 51 U/L (38-126) 04/22/17 08:53 Total Creatine Kinase 22 U/L (30-135) L 04/22/17 08:53 CK-MB (Mass) 1.19 ng/mL (0.0-3.38) 04/22/17 08:53 Troponin I 1.5800 ng/mL (0.00-0.120) H* 04/22/17 08:53 NT-Pro-B Natriuret Pep 978 pg/mL (0-900) H 04/20/17 11:01 Total Protein 6.5 g/dL (6.3-8.3) 04/22/17 08:53 Albumin 3.4 g/dL (3.5-5.0) L 04/22/17 08:53 Globulin 3.1 gm/dL (2.2-3.9) 04/22/17 08:53 Albumin/Globulin Ratio 1.1 (1.0-2.1) 04/22/17 08:53 Vitamin B12 479 pg/mL (239-931) 04/21/17 06:18 Folate > 20.0 ng/mL 04/21/17 17:15 TSH 3rd Generation 4.25 mIU/L (0.46-4.68) 04/21/17 06:18 Stool Occult Blood Positive (NEGATIVE) H 04/21/17 15:10 Blood Type A POSITIVE 04/20/17 12:27 Blood Type Confirm A POSITIVE 04/20/17 12:27 Antibody Screen Negative 04/20/17 12:27 Discharge Exam - Head Exam Head Exam: NORMAL INSPECTION - Eye Exam Eye Exam: Normal appearance, PERRL - Neck Exam Neck exam: Normal Inspection - Respiratory Exam Respiratory Exam: Clear to PA & Lateral, NORMAL BREATHING PATTERN - Cardiovascular Exam Cardiovascular Exam: RRR, +S1, +S2, Systolic Murmur - GI/Abdominal Exam GI & Abdominal Exam: Normal Bowel Sounds, Soft - Extremities Exam Extremities exam: pedal pulses present - Neurological Exam Neurological exam: Alert, Normal Gait, Oriented x3 - Psychiatric Exam Psychiatric exam: Normal Affect, Normal Mood - Skin Skin Exam: Dry, Intact, Normal Color, Warm Discharge Plan - Follow Up Plan Condition: FAIR Disposition: HOME/ ROUTINE
== END 2017-04-22 13:30 | disposition home or self-care (01) | DRG 281 ==
LOC: C.ER 10:09 → C.9E 12:53 → C.6T 17:24
PROVIDERS: ADMIT Internal Medicine Cardiovascular Disease; ATTEND Internal Medicine Cardiovascular Disease
PROC: 30233N1 Transfusion of Nonautologous Red Blood Cells into Peripheral Vein, Percutaneous Approach (ICD-10-PCS; principal; 2017-04-20)
DX: I21.4 Non-ST elevation (NSTEMI) myocardial infarction (principal); D50.0 Iron deficiency anemia secondary to blood loss (chronic); K92.2 Gastrointestinal hemorrhage, unspecified; E11.69 Type 2 diabetes mellitus with other specified complication; I15.2 Hypertension secondary to endocrine disorders; E03.9 Hypothyroidism, unspecified; I25.10 Atherosclerotic heart disease of native coronary artery without angina pectoris; E78.5 Hyperlipidemia, unspecified; E78.00 Pure hypercholesterolemia, unspecified; I35.0 Nonrheumatic aortic (valve) stenosis; Z95.5 Presence of coronary angioplasty implant and graft; Z95.1 Presence of aortocoronary bypass graft; Z79.82 Long term (current) use of aspirin

== ENCOUNTER 2017-04-29 08:43 | Inpatient (IN) | payer MEDICARE, BC ==
--- NOTE | 2017-04-29 09:47 | C.PDOC ---
History Of Present Illness Patient is a 77 y/o female who presents to the ED BIBA because daughter felt mother looked pale, admitting she felt lethargic. Patient has a Hx of GI bleeding without source and has had prior blood transfusions. Patient notes being admitted in transfusions last week. Patient is pending upper and lower endodoscopy with Dr. Rubalcava this week; admits normal colonoscopy and endoscopy 5 years ago. Notes having dark stools. No other physical complaints at this time. Time Seen by Provider: 04/29/17 09:18 Chief Complaint (Nursing): Weakness/Neurological Deficit History Per: Patient History/Exam Limitations: no limitations Onset/Duration Of Symptoms: Hrs Current Symptoms Are (Timing): Still Present Seizure Or Post-ictal Symptoms: None Fall Associated With With Symptoms: No Recent travel outside of the [place]: No Past Medical History Reviewed: Historical Data, Nursing Documentation, Vital Signs Vital Signs: Last Vital Signs Temp 98.5 F 04/29/17 11:24 Pulse 71 04/29/17 11:24 Resp 18 04/29/17 11:24 BP 127/54 L 04/29/17 11:24 Pulse Ox 100 04/29/17 11:24 - Medical History PMH: Anemia (she reports chronic anemia all her life), Cardia Arrhythmia (Sinus Node Dysfunction), HTN, Hypercholesterolemia, Hyperlipidemia, Hypothyroidism Denies: Chronic Kidney Disease Surgical History: CABG (1998), Coronary Stent, Endoscopy - [facility] Procedures TRANSFUSE NONAUT RED BLOOD CELLS IN PERIPH VEIN, PERC (04/20/17) Family History: States: No Known Family Hx - Social History Hx Tobacco Use: No Hx Alcohol Use: No Hx Substance Use: No - Immunization History Hx Tetanus Toxoid Vaccination: No Hx Influenza Vaccination: Yes (11/2016) Hx Pneumococcal Vaccination: Yes (2014) Review Of Systems Skin: Positive for: Other (pale) Neurological: Positive for: Other (felt lethargic ) Physical Exam - Physical Exam Skin: Pale Head: Atraumatic, Normacephalic Eye(s): bilateral: Conjunctiva Pale Oral Mucosa: Moist Chest: Symmetrical Cardiovascular: Rhythm Regular, Murmur (holosystolic murmur) Respiratory: Normal Breath Sounds, No Rales, No Rhonchi, No Wheezing Gastrointestinal/Abdominal: Soft, No Tenderness Neurological/Psych: Oriented x3, Normal Speech, Normal Cognition ED Course And Treatment - Laboratory Results Result Diagrams: 04/29/17 09:39 04/29/17 09:39 Lab Interpretation: No Changes Compared To Prior Results ECG: Interpreted By Me ECG Rhythm: Sinus Rhythm ECG Interpretation: Normal Rate From EC (bpm) O2 Sat by Pulse Oximetry: 92 Pulse Ox Interpretation: Abnormal - Radiology CXR: Interpreted by Me, Viewed By Me CXR Interpretation: Yes: Other (IMPRESSION:Linear atelectasis, left mid lung zone. Mild pulmonary venous congestion. Cardiomegaly. Median sternotomy wires with evidence of CABG.) Progress Note: blood type and cross, transfusions begun in ED Reevaluation Time: 11:08 Reassessment Condition: Improved - Physician Consult Information Outcome Of Conversation: 1100: d/w Dr. Chay Douglas- PMD- ok to admit. Will consult Dr. Morales GI Medical Decision Making Medical Decision Making: Blood work, EKG, CXR, and UA ordered. symptomatic anemia hgb 5.1, persistent GIB without source (for many years) with prior blood tx even last week. Disposition Doctor Will See Patient In The: Hospital Counseled Patient/Family Regarding: Studies Performed, Diagnosis - Disposition Disposition: HOSPITALIZED Disposition Time: 11:09 Condition: GOOD - Clinical Impression Clinical Impression: Signs and symptoms of anemia, GI (gastrointestinal bleed) - Scribe Statement The provider has reviewed the documentation as recorded by the Scribe Norma Reveles All medical record entries made by the Scribe were at my direction and personally dictated by me. I have reviewed the chart and agree that the record accurately reflects my personal performance of the history, physical exam, medical decision making, and the department course for this patient. I have also personally directed, reviewed, and agree with the discharge instructions and disposition.
[2017-04-29 09:50] LABS: BASO % 0.5 % (0.0-2.0); EOS % 0.4 % (0.0-4.0); LYMPH # 1.3 K/uL (1.0-4.3); LYMPH % 14.9 % (20.0-40.0); MEAN CORPUSCULAR HEMOGLOBIN 31.3 pg (27.0-31.0); MEAN CORPUSCULAR HGB CONC 34.4 g/dL (33.0-37.0); MONO # 0.5 K/uL (0.0-0.8); MONO % 5.3 % (0.0-10.0); NEUT # 6.8 K/uL (1.8-7.0); NEUT % 78.9 % (50.0-75.0); NRBC % 0.1 % (0.0-2.0); RBC 1.63 Mil/uL (3.80-5.20); RED CELL DISTRIBUTION WIDTH 16.1 % (11.5-14.5); WHITE BLOOD COUNT 8.6 K/uL (4.8-10.8)
[2017-04-29 09:55] LABS: HEMOGLOBIN 5.1 g/dL (11.0-16.0)
[2017-04-29 09:56] LABS: INR 1.2; PROTHROMBIN TIME 12.9 SECONDS (9.7-12.2)
[2017-04-29 10:06] LABS: ALB/GLOB RATIO 1.2 (1.0-2.1); ALBUMIN 3.3 g/dL (3.5-5.0); ALT/SGPT 25 U/L (9-52); AST/SGOT 21 U/L (14-36); BLOOD UREA NITROGEN 33 mg/dL (7-17); CALCIUM 8.9 mg/dl (8.6-10.4); GFR AFRICAN-AMERICAN > 60; GFR NON-AFRICAN AMERICAN > 60
--- NOTE | 2017-04-29 10:10 | RAD ---
HISTORY: SOB COMPARISON: Chest x-ray performed 04/20/17 TECHNIQUE: Chest, one view. FINDINGS: LUNGS: Linear atelectasis, left mid lung zone. Mild pulmonary venous congestion. Please note that chest x-ray has limited sensitivity for the detection of pulmonary masses. PLEURA: No significant pleural effusion identified. No definite pneumothorax . CARDIOVASCULAR: Median sternotomy wires with evidence of CABG. Cardiomegaly. OSSEOUS STRUCTURES: Osseous demineralization. Degenerative changes. VISUALIZED UPPER ABDOMEN: Unremarkable. OTHER FINDINGS: None. IMPRESSION: Linear atelectasis, left mid lung zone. Mild pulmonary venous congestion. Cardiomegaly. Median sternotomy wires with evidence of CABG.
--- NOTE | 2017-04-29 12:29 | CP.PCM.HP ---
History of Present Illness - History of Present Illness History of Present Illness: This is a 77 y/o female who was admitted through the ER because of shortness of breath, weakness and near syncope. She claims that she has been having diarrhea for several days now and has been passing dark stools. She denies any nausea or vomiting. No abdominal pain or tenderness. She was discharged a week ago because of GI Bleed (+Occult blood in stools and severe anemia) after stabilization with blood transfusion and administration of IV iron. She was followed up in the office and noted to be pale and weak. She had a blood count done which showed a marked drop in H/H to 07/06. She was thus advised to go back to the ER for further evaluation and management. Patient has been off ASA since last admission. Patient has known history of diabetes, hypertension, hypothyroidism, hyperlipidemia and significant CAD, S/P remote CABG. On last admission, patient had elevated troponin and nonspecific EKG changes consistent with NSTEMI. Echocardiogram showed low normal EF with severe aortic stenosis. Present on Admission - Present on Admission Any Indicators Present on Admission: No Review of Systems - Constitutional Constitutional: Fatigue, Weakness - EENT Eyes: As Per HPI Ears: As Per HPI - Cardiovascular Cardiovascular: Dyspnea on Exertion - Respiratory Respiratory: Dyspnea on Exertion - Gastrointestinal Gastrointestinal: Loose Stools, Melena - Neurological Neurological: Dizziness, Weakness Past Patient History - Infectious Disease Hx of Infectious Diseases: None - Past Medical History & Family History Past Medical History?: Yes - Past Social History Smoking Status: Never Smoked Chewing Tobacco Use: No Cigar Use: No Alcohol: None Drugs: Denies Home Situation {Lives}: Alone - CARDIAC Hx Cardiac Disorders: Yes Hx Cardia Arrhythmia: Yes (Sinus Node Dysfunction) Hx Hypercholesterolemia: Yes Hx Hypertension: Yes - PULMONARY Hx Respiratory Disorders: No - NEUROLOGICAL Hx Neurological Disorder: No - HEENT Hx HEENT Problems: No - RENAL Hx Chronic Kidney Disease: No - ENDOCRINE/METABOLIC Hx Endocrine Disorders: Yes Hx Diabetes Mellitus Type 2: Yes Hx Hypothyroidism: Yes - HEMATOLOGICAL/ONCOLOGICAL Hx Anemia: Yes (she reports chronic anemia all her life) - INTEGUMENTARY Hx Dermatological Problems: No - MUSCULOSKELETAL/RHEUMATOLOGICAL Hx Musculoskeletal Disorders: No Hx Falls: No Hx Osteoarthritis: Yes - GASTROINTESTINAL Hx Gastrointestinal Disorders: Yes Hx Diarrhea: Yes Hx Gastritis: Yes - GENITOURINARY/GYNECOLOGICAL Hx Genitourinary Disorders: No - PSYCHIATRIC Hx Psychophysiologic Disorder: No Hx Substance Use: No - SURGICAL HISTORY Hx Surgeries: Yes Hx Cardiac Catheterization: Yes Hx Coronary Artery Bypass Graft: Yes (1998) Hx Coronary Stent: No - ANESTHESIA Hx Anesthesia: Yes Hx Anesthesia Reactions: No Hx Malignant Hyperthermia: No Meds Allergies/Adverse Reactions: Allergies Allergy/AdvReac Type Severity Reaction Status Date / Time No Known Allergies Allergy Verified 04/20/17 10:23 Physical Exam - Constitutional Appears: No Acute Distress - Head Exam Head Exam: NORMAL INSPECTION - Eye Exam Eye Exam: Normal appearance Pupil Exam: NORMAL ACCOMODATION - ENT Exam ENT Exam: Mucous Membranes Moist, Normal Exam - Neck Exam Neck exam: Positive for: Normal Inspection - Respiratory Exam Respiratory Exam: Clear to Auscultation Bilateral, NORMAL BREATHING PATTERN - Cardiovascular Exam Cardiovascular Exam: REGULAR RHYTHM, +S1, +S2, Systolic Murmur - GI/Abdominal Exam GI & Abdominal Exam: Normal Bowel Sounds, Soft - Rectal Exam Rectal Exam: Deferred, Black Stool - Extremities Exam Extremities exam: Positive for: normal inspection, pedal pulses present Additional comments: Lwrist red, warm and tender on prressure consistent with phlebitis - Neurological Exam Neurological exam: Alert, Oriented x3 - Psychiatric Exam Psychiatric exam: Normal Affect, Normal Mood - Skin Skin Exam: Dry, Intact, Normal Color, Warm Results - Vital Signs Recent Vital Signs: Last Vital Signs Temp 98.5 F 04/29/17 11:24 Pulse 71 04/29/17 11:24 Resp 18 04/29/17 11:24 BP 127/54 L 04/29/17 11:24 Pulse Ox 92 L 04/29/17 11:29 - Labs Result Diagrams: 04/30/17 07:25 04/30/17 07:25 Labs: Laboratory Results - last 24 hr 04/29/17 04/29/17 04/29/17 09:39 09:39 09:39 WBC 8.6 RBC 1.63 L Hgb 5.1 L* D Hct 14.8 L MCV 91.0 D MCH 31.3 H MCHC 34.4 RDW 16.1 H Plt Count 344 MPV 7.0 L Neut % (Auto) 78.9 H Lymph % (Auto) 14.9 L Moody % (Auto) 5.3 Eos % (Auto) 0.4 Baso % (Auto) 0.5 Neut # (Auto) 6.8 Lymph # (Auto) 1.3 Moody # (Auto) 0.5 Eos # (Auto) 0.0 Baso # (Auto) 0.0 PT 12.9 H INR 1.2 APTT 26 Sodium 138 Potassium 4.5 Chloride 107 Carbon Dioxide 21 L Anion Gap 15 BUN 33 H Creatinine 0.9 Est GFR ( Amer) > 60 Est GFR (Non-Af Amer) > 60 Random Glucose 143 H Calcium 8.9 Total Bilirubin 0.1 L AST 21 ALT 25 Alkaline Phosphatase 48 Troponin I 0.0680 Total Protein 6.1 L Albumin 3.3 L Globulin 2.7 Albumin/Globulin Ratio 1.2 Blood Type Antibody Screen 04/29/17 09:41 WBC RBC Hgb Hct MCV MCH MCHC RDW Plt Count MPV Neut % (Auto) Lymph % (Auto) Moody % (Auto) Eos % (Auto) Baso % (Auto) Neut # (Auto) Lymph # (Auto) Moody # (Auto) Eos # (Auto) Baso # (Auto) PT INR APTT Sodium Potassium Chloride Carbon Dioxide Anion Gap BUN Creatinine Est GFR ( Amer) Est GFR (Non-Af Amer) Random Glucose Calcium Total Bilirubin AST ALT Alkaline Phosphatase Troponin I Total Protein Albumin Globulin Albumin/Globulin Ratio Blood Type A POSITIVE Antibody Screen Negative Assessment & Plan (1) GI (gastrointestinal bleed) Status: Acute Priority: High Comment: Most likely UGI. R/O PUD, Gastritis. Patient receiving blood transfusion and IV iron also ordered. Will request GI consultation. (2) Anemia Status: Acute Priority: High Comment: Patient has history of chronic anmei running Hgb of 9-10 and asymptomatic until lately when Hgb dropped to 5-6. Serum iron, TIBC, B12 and Folate levels requested. Monitor H/H Q 12 H (3) CAD, multiple vessel Status: Acute Priority: High Comment: Patient has elevated troponin today. Had NSTEMI last admission last week. Denies any chest pain but has shortness of breath with minimal exertion. Patient's last cath wa sin 2013 and found to have multivessel disease with 1 graft occluded with collaterals present. (4) Aortic stenosis, severe Status: Chronic Priority: High Comment: Patient had near syncope attributed to severe anemia but most likely a factor also. (5) Phlebitis Status: Acute Comment: L wrist tender, red and warm to touch . Site of previous IV insertion. Will start on po Cipro. (6) Diabetes mellitus Status: Ruled-out Priority: Medium Comment: Restarted back on diet and her diabetic meds. on Accucheck. Check HgbA1c (7) Hypertension associated with diabetes Status: Chronic Comment: controlled on current antihypertensives. (8) Hyperlipidemia associated with type 2 diabetes mellitus Status: Chronic Priority: Medium Comment: on statin. Decision To Admit - Pt Status Changed To: Hospital Disposition Of: Inpatient - Admit Certification Admit to Inpatient:: After my assessment, the patient will require hospitalization for at least two midnights. This is because of the severity of symptoms shown, intensity of services needed, and/or the medical risk in this patient being treated as an outpatient. - InPatient: Physician Admission Certification:: After my assessment, the patient will require hospitalization for at least two midnights. This is because of the severity of symptoms shown, intensity of services needed, and/or the medical risk in this patient being treated as an outpatient. - . Bed Request Type: Telemetry Admitting Physician: Pallavi Infante
[2017-04-29] MEDS: Metoprolol Succinate 25 mg XL Tab PO SCH (12:59)
[2017-04-29 14:07] LABS: IRON 39 ug/dL (37-170)
[2017-04-29 14:17] LABS: % IRON SATURATION 14 (20-55); TOTAL IRON BINDING CAPACITY 269 ug/dL (250-450)
[2017-04-29 14:25] LABS: CK-MB 1.85 ng/mL (0.0-3.38)
[2017-04-29 15:14] LABS: FOLATE > 20.0 ng/mL
--- NOTE | 2017-04-29 19:24 | CP.PCM.CON ---
History of Present Illness - History of Present Illness History of Present Illness: 77 yo female discharged one week ago for similar admission for anemia, GI blood loss and elevated cardiac enzymes. She was tranfused and GI work up was deferred due to cardiac clearance. She developed shortness of breath and was again found to be more anemic with hgb=5.1. ASA was stopped one week ago. She has been having dark stools that have been loose. Was due to have outpatient work up with Dr Rubalcava but readmitted for further blood loss. Also Bun/Cr ratio noted to be elevated. :No N/V. No CP, diaphoresis. Family says patient had EGD and colonoscopy 3-4 years ago and had reflux esophagitis, gastritis and no polyps or cancer. Review of Systems - Constitutional Constitutional: absent: Chills, Weight Loss - Cardiovascular Cardiovascular: As Per HPI, Dyspnea, Dyspnea on Exertion. absent: Chest Pain, Irregular Heart Rhythm - Respiratory Respiratory: Dyspnea - Gastrointestinal Gastrointestinal: As Per HPI Past Patient History - Infectious Disease Hx of Infectious Diseases: None - Past Medical History & Family History Past Medical History?: Yes - Past Social History Smoking Status: Never Smoked Chewing Tobacco Use: No Cigar Use: No Alcohol: None Drugs: Denies Home Situation {Lives}: Alone - CARDIAC Hx Cardiac Disorders: Yes Hx Cardia Arrhythmia: Yes (Sinus Node Dysfunction) Hx Hypercholesterolemia: Yes Hx Hypertension: Yes - PULMONARY Hx Respiratory Disorders: No - NEUROLOGICAL Hx Neurological Disorder: No - HEENT Hx HEENT Problems: No - RENAL Hx Chronic Kidney Disease: No - ENDOCRINE/METABOLIC Hx Endocrine Disorders: Yes Hx Diabetes Mellitus Type 2: Yes Hx Hypothyroidism: Yes - HEMATOLOGICAL/ONCOLOGICAL Hx Anemia: Yes (she reports chronic anemia all her life) Hx Cirrhosis: No Hx Hepatitis A: No Hx Hepatitis B: No Hx Hepatitis C: No Hx Human Immunodeficiency Virus (HIV): No - INTEGUMENTARY Hx Dermatological Problems: No - MUSCULOSKELETAL/RHEUMATOLOGICAL Hx Musculoskeletal Disorders: No Hx Falls: No Hx Osteoarthritis: Yes - GASTROINTESTINAL Hx Gastrointestinal Disorders: Yes Hx Clostridium Difficile: No Hx Colitis: No Hx Colostomy: No Hx Constipation: No Hx Crohn's Disease: No Hx Diarrhea: Yes Hx Diverticulitis: No Hx Esophageal Varices: No Hx Fatty Liver Disease: No Hx Gall Bladder Disease: No Hx Gastritis: Yes Hx Gastroesophageal Reflux: Yes Hx Hemorrhoids: No Hx Ileostomy: No Hx Irritable Bowel: No Hx Liver Failure: No Hx Nausea: No Hx Pancreatitis: No HX Swallowing Problems: No Hx Ulcer: No Hx Vomiting: No - GENITOURINARY/GYNECOLOGICAL Hx Genitourinary Disorders: No - PSYCHIATRIC Hx Psychophysiologic Disorder: No Hx Substance Use: No - SURGICAL HISTORY Hx Surgeries: Yes Hx Cardiac Catheterization: Yes Hx Coronary Artery Bypass Graft: Yes (1998) Hx Coronary Stent: No - ANESTHESIA Hx Anesthesia: Yes Hx Anesthesia Reactions: No Hx Malignant Hyperthermia: No Meds Allergies/Adverse Reactions: Allergies Allergy/AdvReac Type Severity Reaction Status Date / Time No Known Allergies Allergy Verified 04/20/17 10:23 - Medications Medications: Current Medications Ciprofloxacin (Cipro) 500 mg PO BID [facility] PRN Reason: Protocol Ferric Sodium Gluconate Complex (Ferrlecit) 125 mg IVPB DAILY [facility] Stop: 05/08/17 10:01 Sodium Chloride (Sodium Chloride 0.45%) 1,000 mls @ 50 mls/hr IV .Q20H [facility] Levothyroxine Sodium (Synthroid) 112 mcg PO DAILY [facility] Losartan Potassium (Cozaar) 100 mg PO QOD [facility] Metformin HCl (Glucophage) 1,000 mg PO DAILY [facility] Metoprolol Succinate (Toprol Xl) 25 mg PO DAILY [facility] Last Admin: 04/29/17 12:59 Dose: 25 mg Multivitamins/Minerals (Therapeutic-M Tab) 1 tab PO DAILY [facility] Pantoprazole Sodium (Protonix Inj) 40 mg IVP Q12H [facility] Rosuvastatin Calcium (Crestor) 5 mg PO HS [facility] Physical Exam - Constitutional Appears: No Acute Distress, Chronically Ill - Head Exam Head Exam: ATRAUMATIC, NORMOCEPHALIC - Eye Exam Eye Exam: EOMI, PERRL - Respiratory Exam Respiratory Exam: NORMAL BREATHING PATTERN - Cardiovascular Exam Cardiovascular Exam: REGULAR RHYTHM, +S1, Systolic Murmur - GI/Abdominal Exam GI & Abdominal Exam: Normal Bowel Sounds, Soft. absent: Distended, Mass, Rebound, Rigid, Tenderness - Rectal Exam Rectal Exam: Deferred - Extremities Exam Extremities exam: Positive for: normal inspection - Neurological Exam Neurological exam: Alert, Oriented x3 - Psychiatric Exam Psychiatric exam: Normal Affect, Normal Mood - Skin Skin Exam: Dry, Warm Results - Vital Signs Recent Vital Signs: Last Vital Signs Temp 98.3 F 04/29/17 17:30 Pulse 66 03/10/18 17:30 Resp 20 04/29/17 17:30 BP 127/56 L 04/29/17 17:30 Pulse Ox 99 04/29/17 17:30 - Labs Result Diagrams: 04/30/17 07:25 04/30/17 07:25 Labs: Laboratory Results - last 24 hr 04/29/17 04/29/17 04/29/17 09:39 09:39 09:39 WBC 8.6 RBC 1.63 L Hgb 5.1 L* D Hct 14.8 L MCV 91.0 D MCH 31.3 H MCHC 34.4 RDW 16.1 H Plt Count 344 MPV 7.0 L Neut % (Auto) 78.9 H Lymph % (Auto) 14.9 L [place] % (Auto) 5.3 Eos % (Auto) 0.4 Baso % (Auto) 0.5 Neut # (Auto) 6.8 Lymph # (Auto) 1.3 [place] # (Auto) 0.5 Eos # (Auto) 0.0 Baso # (Auto) 0.0 Retic Count PT 12.9 H INR 1.2 APTT 26 Sodium 138 Potassium 4.5 Chloride 107 Carbon Dioxide 21 L Anion Gap 15 BUN 33 H Creatinine 0.9 Est GFR ( Amer) > 60 Est GFR (Non-Af Amer) > 60 POC Glucose (mg/dL) Random Glucose 143 H Calcium 8.9 Iron TIBC % Saturation Total Bilirubin 0.1 L AST 21 ALT 25 Alkaline Phosphatase 48 Total Creatine Kinase CK-MB (Mass) Troponin I 0.0680 Total Protein 6.1 L Albumin 3.3 L Globulin 2.7 Albumin/Globulin Ratio 1.2 Vitamin B12 Folate Blood Type Antibody Screen 04/29/17 04/29/17 04/29/17 09:41 13:46 13:46 WBC RBC Hgb Hct MCV MCH MCHC RDW Plt Count MPV Neut % (Auto) Lymph % (Auto) [place] % (Auto) Eos % (Auto) Baso % (Auto) Neut # (Auto) Lymph # (Auto) [place] # (Auto) Eos # (Auto) Baso # (Auto) Retic Count PT INR APTT Sodium Potassium Chloride Carbon Dioxide Anion Gap BUN Creatinine Est GFR ( Amer) Est GFR (Non-Af Amer) POC Glucose (mg/dL) Random Glucose Calcium Iron 39 TIBC 269 % Saturation 14 L Total Bilirubin AST ALT Alkaline Phosphatase Total Creatine Kinase < 20 L CK-MB (Mass) 1.85 Troponin I 0.1250 H* Total Protein Albumin Globulin Albumin/Globulin Ratio Vitamin B12 427 Folate > 20.0 Blood Type A POSITIVE Antibody Screen Negative 04/29/17 04/29/17 13:46 17:33 WBC RBC Hgb Hct MCV MCH MCHC RDW Plt Count MPV Neut % (Auto) Lymph % (Auto) [place] % (Auto) Eos % (Auto) Baso % (Auto) Neut # (Auto) Lymph # (Auto) [place] # (Auto) Eos # (Auto) Baso # (Auto) Retic Count 6.3 H D PT INR APTT Sodium Potassium Chloride Carbon Dioxide Anion Gap BUN Creatinine Est GFR ( Amer) Est GFR (Non-Af Amer) POC Glucose (mg/dL) 195 H Random Glucose Calcium Iron TIBC % Saturation Total Bilirubin AST ALT Alkaline Phosphatase Total Creatine Kinase CK-MB (Mass) Troponin I Total Protein Albumin Globulin Albumin/Globulin Ratio Vitamin B12 Folate Blood Type Antibody Screen Assessment & Plan (1) Melena Assessment and Plan: In view of recurrent dark stools and drop in H/H (off ASA) I would advise expedited EGD when transfused to more acceptible H/H likely in am. The possibility of PUD with bleeding, erosive gastritis, bleeding angioectasia in setting or tight , occult malignancy to be excluded. UGI source appears to be most likely. Begin IV Protonix q12h clear liquid diet and then NPO Finish 2 unit PRBC transfusion EGD in am if cleared by Dr Douglas. The work up should not be deferred based on the event of the past week. Colonoscopy may be done electively based on results of EGD. Status: Acute (2) Anemia due to blood loss Assessment and Plan: As above Status: Acute (3) Aortic stenosis, severe Assessment and Plan: awaiting clearance for emergency EGD by Dr Douglas. She was messaged. Status: Chronic Priority: High (4) CAD, multiple vessel Assessment and Plan: Awaiting cardiac clearance for EGD. Failure to diagnose and treat an UGI lesion at this time could lead to an extensive infarct from blood loss. The benefits of an EGD at this time out weight the cardiac risk from a GI point of view. Status: Acute Priority: High
[2017-04-29] MEDS: Sodium Chloride 0.45% 1,000 ML IV SCH (20:02)
[2017-04-29 21:05] LABS: BASO % 0.4 % (0.0-2.0); EOS # 0.1 K/uL (0.0-0.7); EOS % 0.7 % (0.0-4.0); LYMPH # 2.5 K/uL (1.0-4.3); LYMPH % 23.1 % (20.0-40.0); MEAN CELL VOLUME 86.8 fL (81.0-99.0); MEAN CORPUSCULAR HEMOGLOBIN 29.9 pg (27.0-31.0); MEAN CORPUSCULAR HGB CONC 34.4 g/dL (33.0-37.0); MEAN PLATELET VOLUME 6.7 fL (7.2-11.7); NEUT # 7.1 K/uL (1.8-7.0); NEUT % 66.8 % (50.0-75.0); RBC 2.64 Mil/uL (3.80-5.20); RED CELL DISTRIBUTION WIDTH 15.5 % (11.5-14.5); WHITE BLOOD COUNT 10.7 K/uL (4.8-10.8)
[2017-04-29 21:14] LABS: HEMOGLOBIN 7.9 g/dL (11.0-16.0)
[2017-04-30 04:51] LABS: SQUAMOUS EPITHIAL < 1 /hpf (0-5); URINE BILIRUBIN NEGATIVE (NEGATIVE); URINE BLOOD NEGATIVE (NEGATIVE); URINE CLARITY Clear (Clear); URINE COLOR Colorless (YELLOW); URINE GLUCOSE (UA) NORMAL (Normal); URINE LEUKOCYTE ESTERASE TRACE Leu/uL (Negative); URINE PROTEIN NEGATIVE (NEGATIVE); URINE UROBILINOGEN NORMAL mg/dL (0.2-1.0)
[2017-04-30 07:41] LABS: HEMOGLOBIN 9.5 g/dL (11.0-16.0); MEAN CELL VOLUME 87.2 fL (81.0-99.0); MEAN CORPUSCULAR HEMOGLOBIN 30.2 pg (27.0-31.0); MEAN CORPUSCULAR HGB CONC 34.7 g/dL (33.0-37.0); RBC 3.15 Mil/uL (3.80-5.20); RED CELL DISTRIBUTION WIDTH 15.1 % (11.5-14.5); WHITE BLOOD COUNT 11.1 K/uL (4.8-10.8)
[2017-04-30 08:21] LABS: ALB/GLOB RATIO 1.1 (1.0-2.1); ALT/SGPT 24 U/L (9-52); AST/SGOT 25 U/L (14-36); BLOOD UREA NITROGEN 25 mg/dL (7-17); CALCIUM 8.5 mg/dl (8.6-10.4); GFR AFRICAN-AMERICAN > 60; GFR NON-AFRICAN AMERICAN > 60
[2017-04-30 08:29] LABS: CK-MB 1.25 ng/mL (0.0-3.38)
--- NOTE | 2017-04-30 09:02 | CP.PCM.PN ---
Subjective - Date & Time of Evaluation Date of Evaluation: 04/30/17 Time of Evaluation: 10:00 - Subjective Subjective: Patient comfortable- no bm since yesterday H/H 9.5/27.5 serum troponin- slightly elevated EKG- NSR, NSST T abnormality GI consult noted and appreciated Patient scheduled for upper endoscopy today- Patient's overall clinical condition relatively stable at this time despite high-risk and optimized for the procedure under present circumstances. Objective - Vital Signs/Intake and Output Vital Signs (last 24 hours): Temp Pulse Resp BP Pulse Ox 98.2 F 72 20 149/68 94 L 04/30/17 07:00 04/30/17 07:40 04/30/17 07:00 04/30/17 07:00 04/30/17 07:00 Intake and Output: 04/30/17 04/30/17 06:59 18:59 Intake Total Balance - Medications Medications: Current Medications Ciprofloxacin (Cipro) 500 mg PO BID [facility] PRN Reason: Protocol Last Admin: 04/29/17 19:59 Dose: 500 mg Ferric Sodium Gluconate Complex (Ferrlecit) 125 mg IVPB DAILY [facility] Stop: 05/08/17 10:01 Sodium Chloride (Sodium Chloride 0.45%) 1,000 mls @ 50 mls/hr IV .Q20H [facility] Last Admin: 04/29/17 20:02 Dose: 50 mls/hr Levothyroxine Sodium (Synthroid) 112 mcg PO DAILY [facility] Losartan Potassium (Cozaar) 100 mg PO QOD [facility] Metformin HCl (Glucophage) 1,000 mg PO DAILY [facility] Metoprolol Succinate (Toprol Xl) 25 mg PO DAILY [facility] Last Admin: 04/29/17 12:59 Dose: 25 mg Multivitamins/Minerals (Therapeutic-M Tab) 1 tab PO DAILY [facility] Pantoprazole Sodium (Protonix Inj) 40 mg IVP Q12H [facility] Last Admin: 04/29/17 20:02 Dose: 40 mg Rosuvastatin Calcium (Crestor) 5 mg PO HS [facility] Last Admin: 04/29/17 21:56 Dose: 5 mg - Labs Labs: 04/30/17 07:25 04/30/17 07:25 PT 12.9 SECONDS (9.7-12.2) H 04/29/17 09:39 INR 1.2 04/29/17 09:39 APTT 26 SECONDS (21-34) 04/29/17 09:39 Assessment and Plan (1) GI (gastrointestinal bleed) Assessment & Plan: GI consult noted and appreciated. Patient for upper endoscopy today. She is high -risk for same but in view of recurrent severe bleeding, will clear for procedure. Condition discussed with family and GI technical marketing consultant. Status: Acute (2) Anemia Assessment & Plan: H/H 9.5/27 today. Continue to monitor for bleeding. Status: Acute (3) CAD, multiple vessel Assessment & Plan: Has mildly elevated troponin and nonspecific changes on the EKG most likely due to severe ischemia from the very low H/H (5.1/17) on admission. Patient clinically stable at this time from cardiac standpoint. Cardio consult requested also for cardiac cath and for further evaluation for need for any procedure Status: Acute (4) Aortic stenosis, severe Assessment & Plan: Patient has history of OROZCO and near-syncope prior to admission most likely from sevee anemia but with significant , need to evaluate the severity also. Patient to be evaluated by invasive cardio. Status: Chronic (5) Phlebitis Assessment & Plan: Continue Cipro Status: Acute (6) Diabetes mellitus Assessment & Plan: controlled on current meds Status: Ruled-out (7) Hypertension associated with diabetes Assessment & Plan: controlled on current meds Status: Chronic (8) Hyperlipidemia associated with type 2 diabetes mellitus Assessment & Plan: stable Status: Chronic
[2017-04-30] MEDS ORDERED: FOLIC PO SCH (10:00)
[2017-04-30] MEDS ORDERED: IRON CARB PO SCH (10:00)
[2017-04-30] MEDS ORDERED: VIT C PO SCH (10:00)
[2017-04-30] MEDS ORDERED: VIT B12 PO SCH (10:00)
[2017-04-30] MEDS ORDERED: Levothyroxine 112 MCG TAB PO SCH (10:00)
[2017-04-30] MEDS ORDERED: Etomidate 20 mg/10ml Inj IV ONE (11:08)
--- NOTE | 2017-04-30 11:34 | CP.PCM.PN ---
Subjective - Date & Time of Evaluation Date of Evaluation: 04/30/17 Time of Evaluation: 11:32 - Subjective Subjective: EGD: small hiatal hernia and mild antral gastirits No bleeding lesion, ulcer or AVM. Case discussed with Dr Buchanan and family Will proceed to prep for colonoscopy tomorrow Patient to be transferred for TAVR with Dr Buchanan once GI cleared. Monitor for bleeding Objective - Vital Signs/Intake and Output Vital Signs (last 24 hours): Temp Pulse Resp BP Pulse Ox 98.2 F 72 20 149/68 94 L 04/30/17 07:00 04/30/17 07:40 04/30/17 07:00 04/30/17 07:00 04/30/17 07:00 Intake and Output: 04/30/17 04/30/17 06:59 18:59 Intake Total 0 Balance 0 - Medications Medications: Current Medications Ciprofloxacin (Cipro) 500 mg PO BID [facility] PRN Reason: Protocol Last Admin: 04/29/17 19:59 Dose: 500 mg Ferric Sodium Gluconate Complex (Ferrlecit) 125 mg IVPB DAILY [facility] Stop: 05/08/17 10:01 Sodium Chloride (Sodium Chloride 0.45%) 1,000 mls @ 50 mls/hr IV .Q20H [facility] Last Admin: 04/29/17 20:02 Dose: 50 mls/hr Levothyroxine Sodium (Synthroid) 112 mcg PO DAILY [facility] Losartan Potassium (Cozaar) 100 mg PO QOD [facility] Metformin HCl (Glucophage) 1,000 mg PO DAILY [facility] Metoprolol Succinate (Toprol Xl) 25 mg PO DAILY [facility] Last Admin: 04/29/17 12:59 Dose: 25 mg Multivitamins/Minerals (Therapeutic-M Tab) 1 tab PO DAILY [facility] Pantoprazole Sodium (Protonix Inj) 40 mg IVP Q12H [facility] Last Admin: 04/29/17 20:02 Dose: 40 mg Rosuvastatin Calcium (Crestor) 5 mg PO HS [facility] Last Admin: 04/29/17 21:56 Dose: 5 mg - Labs Labs: 04/30/17 07:25 04/30/17 07:25 PT 12.9 SECONDS (9.7-12.2) H 04/29/17 09:39 INR 1.2 04/29/17 09:39 APTT 26 SECONDS (21-34) 04/29/17 09:39 Assessment and Plan (1) Melena Status: Acute (2) Anemia due to blood loss Status: Acute (3) Aortic stenosis, severe Status: Chronic (4) CAD, multiple vessel Status: Acute
[2017-04-30] MEDS: Ferric Sodium Gluconat Complex 62.5 mg/5 ml Vial IVPB SCH (12:45)
[2017-04-30] MEDS: Multivitamin With Minerals Tab PO SCH (13:25)
[2017-04-30] MEDS: Metoprolol Succinate 25 mg XL Tab PO SCH (13:26)
[2017-04-30] MEDS: Sodium Chloride 0.45% 1,000 ML IV SCH (14:50)
[2017-04-30] MEDS ORDERED: Bisacodyl 5mg EC Tab PO ONE (17:00)
--- NOTE | 2017-04-30 18:09 | CP.PCM.CON ---
History of Present Illness - History of Present Illness History of Present Illness: Reason For Consultation: Severe HPI: 77 F with hx of CAD s/p CABG (>20 yrs ago), HTN, DM 2, Chronic GI bleeding admitted for dyspnea and near syncopial episode. Patient with guiac positive stools required PRBC transfusion. S/P EGD Review of Systems - Constitutional Constitutional: Fatigue - EENT Eyes: absent: Blurred Vision Ears: absent: Decreased Hearing Nose/Mouth/Throat: absent: Epistaxis - Cardiovascular Cardiovascular: Dyspnea - Respiratory Respiratory: Dyspnea - Gastrointestinal Gastrointestinal: Melena - Musculoskeletal Musculoskeletal: absent: Arthralgias - Psychiatric Psychiatric: absent: Anxiety Past Patient History - Infectious Disease Hx of Infectious Diseases: None - Past Medical History & Family History Past Medical History?: Yes - Past Social History Smoking Status: Never Smoked Chewing Tobacco Use: No Cigar Use: No Alcohol: None Drugs: Denies Home Situation {Lives}: Alone - CARDIAC Hx Cardiac Disorders: Yes Hx Cardia Arrhythmia: Yes (Sinus Node Dysfunction) Hx Hypercholesterolemia: Yes Hx Hypertension: Yes - PULMONARY Hx Respiratory Disorders: No - NEUROLOGICAL Hx Neurological Disorder: No - HEENT Hx HEENT Problems: No - RENAL Hx Chronic Kidney Disease: No - ENDOCRINE/METABOLIC Hx Endocrine Disorders: Yes Hx Diabetes Mellitus Type 2: Yes Hx Hypothyroidism: Yes - HEMATOLOGICAL/ONCOLOGICAL Hx Anemia: Yes (she reports chronic anemia all her life) Hx Cirrhosis: No Hx Hepatitis A: No Hx Hepatitis B: No Hx Hepatitis C: No Hx Human Immunodeficiency Virus (HIV): No - INTEGUMENTARY Hx Dermatological Problems: No - MUSCULOSKELETAL/RHEUMATOLOGICAL Hx Musculoskeletal Disorders: No Hx Falls: No Hx Osteoarthritis: Yes - GASTROINTESTINAL Hx Gastrointestinal Disorders: Yes Hx Clostridium Difficile: No Hx Colitis: No Hx Colostomy: No Hx Constipation: No Hx Crohn's Disease: No Hx Diarrhea: Yes Hx Diverticulitis: No Hx Esophageal Varices: No Hx Fatty Liver Disease: No Hx Gall Bladder Disease: No Hx Gastritis: Yes Hx Gastroesophageal Reflux: Yes Hx Hemorrhoids: No Hx Ileostomy: No Hx Irritable Bowel: No Hx Liver Failure: No Hx Nausea: No Hx Pancreatitis: No HX Swallowing Problems: No Hx Ulcer: No Hx Vomiting: No - GENITOURINARY/GYNECOLOGICAL Hx Genitourinary Disorders: No - PSYCHIATRIC Hx Psychophysiologic Disorder: No Hx Substance Use: No - SURGICAL HISTORY Hx Surgeries: Yes Hx Cardiac Catheterization: Yes Hx Coronary Artery Bypass Graft: Yes (1998) Hx Coronary Stent: No - ANESTHESIA Hx Anesthesia: Yes Hx Anesthesia Reactions: No Hx Malignant Hyperthermia: No Meds Allergies/Adverse Reactions: Allergies Allergy/AdvReac Type Severity Reaction Status Date / Time No Known Allergies Allergy Verified 04/20/17 10:23 - Medications Medications: Current Medications Ciprofloxacin (Cipro) 500 mg PO BID [facility] PRN Reason: Protocol Last Admin: 04/30/17 17:44 Dose: 500 mg Ferric Sodium Gluconate Complex (Ferrlecit) 125 mg IVPB DAILY [facility] Stop: 05/08/17 10:01 Last Admin: 04/30/17 12:45 Dose: 125 mg Sodium Chloride (Sodium Chloride 0.45%) 1,000 mls @ 50 mls/hr IV .Q20H [facility] Last Admin: 04/30/17 14:50 Dose: 50 mls/hr Levothyroxine Sodium (Synthroid) 112 mcg PO DAILY [facility] Last Admin: 04/30/17 10:00 Dose: Not Given Losartan Potassium (Cozaar) 100 mg PO QOD [facility] Last Admin: 04/30/17 13:26 Dose: 100 mg Metformin HCl (Glucophage) 1,000 mg PO DAILY [facility] Last Admin: 04/30/17 10:00 Dose: Not Given Metoprolol Succinate (Toprol Xl) 25 mg PO DAILY [facility] Last Admin: 04/30/17 13:26 Dose: 25 mg Multivitamins/Minerals (Therapeutic-M Tab) 1 tab PO DAILY [facility] Last Admin: 04/30/17 13:25 Dose: 1 tab Pantoprazole Sodium (Protonix Inj) 40 mg IVP Q12H [facility] Last Admin: 04/30/17 09:00 Dose: Not Given Polyethylene Glycol/Electrolytes (Golytely) 4,000 ml PO ONCE ONE Stop: 04/30/17 19:01 Rosuvastatin Calcium (Crestor) 5 mg PO HS [facility] Last Admin: 04/29/17 21:56 Dose: 5 mg Physical Exam - Head Exam Head Exam: ATRAUMATIC, NORMAL INSPECTION, NORMOCEPHALIC - Eye Exam Eye Exam: EOMI, Normal appearance, PERRL Pupil Exam: NORMAL ACCOMODATION, PERRL - ENT Exam ENT Exam: Mucous Membranes Moist, Normal Exam - Neck Exam Neck exam: Positive for: Normal Inspection - Respiratory Exam Respiratory Exam: Clear to Auscultation Bilateral, NORMAL BREATHING PATTERN - Cardiovascular Exam Cardiovascular Exam: REGULAR RHYTHM, +S1, +S2, Systolic Murmur - GI/Abdominal Exam GI & Abdominal Exam: Normal Bowel Sounds, Soft - Neurological Exam Neurological exam: Alert, CN II-XII Intact, Oriented x3, Reflexes Normal - Psychiatric Exam Psychiatric exam: Normal Mood - Skin Skin Exam: Warm Results - Vital Signs Recent Vital Signs: Last Vital Signs Temp 99.3 F 04/30/17 15:00 Pulse 72 04/30/17 15:00 Resp 20 04/30/17 15:00 BP 152/65 H 04/30/17 15:00 Pulse Ox 95 04/30/17 15:00 - Labs Result Diagrams: 04/30/17 07:25 04/30/17 07:25 Labs: Laboratory Results - last 24 hr 04/29/17 04/29/17 04/29/17 09:41 17:33 20:36 WBC RBC Hgb Hct MCV MCH MCHC RDW Plt Count MPV Neut % (Auto) Lymph % (Auto) Bee % (Auto) Eos % (Auto) Baso % (Auto) Neut # (Auto) Lymph # (Auto) Bee # (Auto) Eos # (Auto) Baso # (Auto) Sodium Potassium Chloride Carbon Dioxide Anion Gap BUN Creatinine Est GFR ( Amer) Est GFR (Non-Af Amer) POC Glucose (mg/dL) 195 H 161 H Random Glucose Hemoglobin A1c Calcium Total Bilirubin AST ALT Alkaline Phosphatase Total Creatine Kinase CK-MB (Mass) Troponin I Total Protein Albumin Globulin Albumin/Globulin Ratio Urine Color Urine Clarity Urine pH Ur Specific Lawrence Urine Protein Urine Glucose (UA) Urine Ketones Urine Blood Urine Nitrate Urine Bilirubin Urine Urobilinogen Ur Leukocyte Esterase Urine WBC (Auto) Urine RBC (Auto) Ur Squamous Epith Cells Stool Occult Blood Blood Type A POSITIVE Antibody Screen Negative 04/29/17 04/29/17 04/30/17 21:02 21:02 04:42 WBC 10.7 RBC 2.64 L Hgb 7.9 L D Hct 23.0 L MCV 86.8 D MCH 29.9 MCHC 34.4 RDW 15.5 H Plt Count 303 MPV 6.7 L Neut % (Auto) 66.8 Lymph % (Auto) 23.1 Bee % (Auto) 9.0 Eos % (Auto) 0.7 Baso % (Auto) 0.4 Neut # (Auto) 7.1 H Lymph # (Auto) 2.5 Bee # (Auto) 1.0 H Eos # (Auto) 0.1 Baso # (Auto) 0.0 Sodium Potassium Chloride Carbon Dioxide Anion Gap BUN Creatinine Est GFR ( Amer) Est GFR (Non-Af Amer) POC Glucose (mg/dL) Random Glucose Hemoglobin A1c Calcium Total Bilirubin AST ALT Alkaline Phosphatase Total Creatine Kinase CK-MB (Mass) Troponin I Total Protein Albumin Globulin Albumin/Globulin Ratio Urine Color Colorless Urine Clarity Clear Urine pH 5.0 Ur Specific Lawrence 1.010 Urine Protein Negative Urine Glucose (UA) Normal Urine Ketones Negative Urine Blood Negative Urine Nitrate Negative Urine Bilirubin Negative Urine Urobilinogen Normal Ur Leukocyte Esterase Trace Urine WBC (Auto) 7 H Urine RBC (Auto) < 1 Ur Squamous Epith Cells < 1 Stool Occult Blood Positive H Blood Type Antibody Screen 04/30/17 04/30/17 04/30/17 06:02 07:25 07:25 WBC 11.1 H RBC 3.15 L Hgb 9.5 L Hct 27.5 L MCV 87.2 MCH 30.2 MCHC 34.7 RDW 15.1 H Plt Count 302 MPV 7.0 L Neut % (Auto) Lymph % (Auto) Bee % (Auto) Eos % (Auto) Baso % (Auto) Neut # (Auto) Lymph # (Auto) Bee # (Auto) Eos # (Auto) Baso # (Auto) Sodium Potassium Chloride Carbon Dioxide Anion Gap BUN Creatinine Est GFR ( Amer) Est GFR (Non-Af Amer) POC Glucose (mg/dL) 136 H Random Glucose Hemoglobin A1c 5.8 Calcium Total Bilirubin AST ALT Alkaline Phosphatase Total Creatine Kinase CK-MB (Mass) Troponin I Total Protein Albumin Globulin Albumin/Globulin Ratio Urine Color Urine Clarity Urine pH Ur Specific Lawrence Urine Protein Urine Glucose (UA) Urine Ketones Urine Blood Urine Nitrate Urine Bilirubin Urine Urobilinogen Ur Leukocyte Esterase Urine WBC (Auto) Urine RBC (Auto) Ur Squamous Epith Cells Stool Occult Blood Blood Type Antibody Screen 04/30/17 04/30/17 07:25 16:08 WBC RBC Hgb Hct MCV MCH MCHC RDW Plt Count MPV Neut % (Auto) Lymph % (Auto) Bee % (Auto) Eos % (Auto) Baso % (Auto) Neut # (Auto) Lymph # (Auto) Bee # (Auto) Eos # (Auto) Baso # (Auto) Sodium 138 Potassium 4.3 Chloride 107 Carbon Dioxide 21 L Anion Gap 15 BUN 25 H Creatinine 0.9 Est GFR ( Amer) > 60 Est GFR (Non-Af Amer) > 60 POC Glucose (mg/dL) 184 H Random Glucose 115 H Hemoglobin A1c Calcium 8.5 L Total Bilirubin 0.3 AST 25 ALT 24 Alkaline Phosphatase 44 Total Creatine Kinase < 20 L CK-MB (Mass) 1.25 Troponin I 0.3420 H* Total Protein 5.6 L Albumin 3.0 L Globulin 2.6 Albumin/Globulin Ratio 1.1 Urine Color Urine Clarity Urine pH Ur Specific Lawrence Urine Protein Urine Glucose (UA) Urine Ketones Urine Blood Urine Nitrate Urine Bilirubin Urine Urobilinogen Ur Leukocyte Esterase Urine WBC (Auto) Urine RBC (Auto) Ur Squamous Epith Cells Stool Occult Blood Blood Type Antibody Screen Assessment & Plan - Assessment and Plan (Free Text) Assessment: 1. Aortic Stenosis: Severe (RAZ 1sq cm) 2. Hx of CAD s/p CABG Elevated Troponin most likely secondary to demand ischemia 3. Severe Pulmonary HTN and moderate MR 4. DM 2 5. HTN This Chronic GI bleeding most likely secondary to Severe . Patient likely needs TAVR which could potentially be curative for this chronic slow GIB and also likely improve her Pulmonary HTN and Mitral regurgitation. Will wait for Colonoscopy to be done tomorrow. Cardiac point of view cleared for Colonoscopy. If Colonoscopy is negative will initiate TAVR work up starting with Cardiac cath. Discussed with patient and family
[2017-04-30] MEDS ORDERED: Peg-Electrolyte Oral Soln 4L (Golytely) PO ONE (19:00)
[2017-05-01 06:52] LABS: HEMOGLOBIN 9.2 g/dL (11.0-16.0); MEAN CELL VOLUME 86.9 fL (81.0-99.0); MEAN CORPUSCULAR HEMOGLOBIN 30.2 pg (27.0-31.0); MEAN CORPUSCULAR HGB CONC 34.7 g/dL (33.0-37.0); MEAN PLATELET VOLUME 7.1 fL (7.2-11.7); RBC 3.03 Mil/uL (3.80-5.20); RED CELL DISTRIBUTION WIDTH 15.2 % (11.5-14.5); WHITE BLOOD COUNT 12.8 K/uL (4.8-10.8)
[2017-05-01 06:55] LABS: ALB/GLOB RATIO 1.1 (1.0-2.1); ALT/SGPT 22 U/L (9-52); AST/SGOT 20 U/L (14-36); BLOOD UREA NITROGEN 15 mg/dL (7-17); CALCIUM 8.4 mg/dl (8.6-10.4); GFR AFRICAN-AMERICAN > 60; GFR NON-AFRICAN AMERICAN > 60
[2017-05-01 07:05] LABS: CK-MB 1.05 ng/mL (0.0-3.38)
[2017-05-01] MEDS: Levothyroxine 112 MCG TAB PO SCH (07:56)
[2017-05-01] MEDS ORDERED: Propofol 10 mg/ml Inj (20 ML) ONE ×2 (08:34→09:06)
[2017-05-01] MEDS ORDERED: Etomidate 20 mg/10ml Inj IV ONE (08:34)
--- NOTE | 2017-05-01 09:15 | PCM.SURG1 ---
Surgeon's Initial Post Op Note - Surgeon's Notes Surgeon: Jamey Rubalcava Envelope Addresser: none Type of Anesthesia: MAC Pre-Operative Diagnosis: Lower GI bleed Operative Findings: Diverticula in sigmoid colon and transverse colon, lipoma of ileocecal valve, small internal hemorrhoids, small amount of old blood scattered throughout the colon, no fresh blood Post-Operative Diagnosis: Diverticulosis; lipoma of ileocecal valve; internal hemorrhoids Operation Performed: Colonoscopy Specimen/Specimens Removed: None Estimated Blood Loss: EBL {In ML}: 0 Date of Surgery/Procedure: 05/01/17 Time of Surgery/Procedure: 09:15
[2017-05-01] MEDS ORDERED: Barium Sulfate Susp 0.1% w/v, 0.1% w/w 450 mL Bottle PO ONE (10:28)
[2017-05-01] MEDS: Metoprolol Succinate 25 mg XL Tab PO SCH (10:44)
[2017-05-01] MEDS: Multivitamin With Minerals Tab PO SCH (10:44)
[2017-05-01] MEDS: Ferric Sodium Gluconat Complex 62.5 mg/5 ml Vial IVPB SCH (10:54)
[2017-05-01] MEDS: Sodium Chloride 0.45% 1,000 ML IV SCH (10:56)
--- NOTE | 2017-05-01 12:39 | CARD ---
APPROVED REPORT EKG Measurement Heart [id number] <Conclusion> Normal sinus rhythm Normal ECG
[2017-05-01] MEDS ORDERED: Iodixanol 320 MG/ML 100 ML BOTTLE IV ONE (15:06)
--- NOTE | 2017-05-01 16:09 | CP.PCM.PN ---
Subjective - Date & Time of Evaluation Date of Evaluation: 05/01/17 Time of Evaluation: 03:45 - Subjective Subjective: -Patient had upper endoscopy yesterday and colonoscopy this morning. No active bleeding site seen. -No gastric ulcer, +mild antral gastritis and small hiatal hernia seen on upper endoscopy, diverticulosis, ileoceal valve lipoma and internal hemorrhoids on colonoscopy -Patient comfortable. No chest pain, no shortness of breath,no abdominal discomfort -H/H 9.04/18 CMP- noted -Cardio consult noted- to be scheduled for cardiac cath and probable TAVR Objective - Vital Signs/Intake and Output Vital Signs (last 24 hours): Temp Pulse Resp BP Pulse Ox 98.4 F 68 20 154/73 H 96 05/01/17 15:42 05/01/17 15:42 05/01/17 15:42 05/01/17 15:42 05/01/17 15:42 Intake and Output: 05/01/17 05/01/17 06:59 18:59 Intake Total 3000 400 Output Total 1375 Balance 1625 400 - Medications Medications: Current Medications Ciprofloxacin (Cipro) 500 mg PO BID [facility] PRN Reason: Protocol Last Admin: 05/01/17 10:44 Dose: 500 mg Ferric Sodium Gluconate Complex (Ferrlecit) 125 mg IVPB DAILY [facility] Stop: 05/08/17 10:01 Last Admin: 05/01/17 10:54 Dose: 125 mg Sodium Chloride (Sodium Chloride 0.45%) 1,000 mls @ 50 mls/hr IV .Q20H [facility] Last Admin: 05/01/17 10:56 Dose: 50 mls/hr Levothyroxine Sodium (Synthroid) 112 mcg PO ACB [facility] Last Admin: 05/01/17 07:56 Dose: Not Given Losartan Potassium (Cozaar) 100 mg PO QOD [facility] Last Admin: 04/30/17 13:26 Dose: 100 mg Metformin HCl (Glucophage) 1,000 mg PO DAILY [facility] Last Admin: 05/01/17 11:18 Dose: Not Given Metoprolol Succinate (Toprol Xl) 25 mg PO DAILY [facility] Last Admin: 05/01/17 10:44 Dose: 25 mg Multivitamins/Minerals (Therapeutic-M Tab) 1 tab PO DAILY [facility] Last Admin: 05/01/17 10:44 Dose: 1 tab Pantoprazole Sodium (Protonix Inj) 40 mg IVP Q12H [facility] Last Admin: 05/01/17 07:47 Dose: 40 mg Rosuvastatin Calcium (Crestor) 5 mg PO HS [facility] Last Admin: 04/30/17 21:19 Dose: 5 mg - Labs Labs: 05/01/17 06:29 05/01/17 06:29 PT 12.9 SECONDS (9.7-12.2) H 04/29/17 09:39 INR 1.2 04/29/17 09:39 APTT 26 SECONDS (21-34) 04/29/17 09:39 - Constitutional Appears: No Acute Distress - Head Exam Head Exam: NORMAL INSPECTION - Eye Exam Eye Exam: Normal appearance, PERRL - ENT Exam ENT Exam: Mucous Membranes Moist, Normal Exam - Neck Exam Neck Exam: Normal Inspection - Respiratory Exam Respiratory Exam: Clear to Ausculation Bilateral, NORMAL BREATHING PATTERN - Cardiovascular Exam Cardiovascular Exam: REGULAR RHYTHM, +S1, +S2, Murmur - GI/Abdominal Exam GI & Abdominal Exam: Soft, Normal Bowel Sounds - Extremities Exam Extremities Exam: Normal Inspection - Neurological Exam Neurological Exam: Alert, Awake, Oriented x3 - Psychiatric Exam Psychiatric exam: Normal Affect, Normal Mood - Skin Skin Exam: Dry, Intact, Normal Color, Warm Assessment and Plan (1) GI (gastrointestinal bleed) Assessment & Plan: No active bleeding site noted. await CT Scan of the abdomen and pelvis result Status: Acute (2) Anemia Assessment & Plan: H/H stable so far. Will recheck tomorrow. Continue iron for now. Status: Acute (3) CAD, multiple vessel Assessment & Plan: no chest pain. troponin trending down EKG- NSST T abnormality Status: Acute (4) Aortic stenosis, severe Assessment & Plan: Cardio consult noted. planning for cardiac cath and probable TAVR Status: Chronic (5) Phlebitis Assessment & Plan: improving on the wrist but L antecubital area also red and swollen from fluid infusion Status: Acute (6) Diabetes mellitus Assessment & Plan: continue current Rx Status: Ruled-out (7) Hypertension associated with diabetes Assessment & Plan: stable Status: Chronic (8) Hyperlipidemia associated with type 2 diabetes mellitus Assessment & Plan: stable Status: Chronic
--- NOTE | 2017-05-01 16:28 | CT ---
PROCEDURE: CT Abdomen and Pelvis with contrast HISTORY: GI bleeding with negative EGD and colonoscopy COMPARISON: None. TECHNIQUE: Contrast dose: 100 mL Visipaque 320 Radiation dose: Total exam DLP = 562.47 mGy-cm. This CT exam was performed using one or more of the following dose reduction techniques: Automated exposure control, adjustment of the mA and/or kV according to patient size, and/or use of iterative reconstruction technique. FINDINGS: LOWER THORAX: Small bilateral pleural effusion, left greater than right. Minimal bilateral lower lobe compressive atelectasis. LIVER: Normal size and contour. No mass. No biliary dilatation. Nodular left lobe calcification consistent with old calcified granuloma. GALLBLADDER AND BILE DUCTS: Cholelithiasis without mural thickening or pericholecystic fluid. PANCREAS: Unremarkable. No gross lesion or ductal dilatation. SPLEEN: Unremarkable. ADRENALS: Unremarkable. No mass. KIDNEYS AND URETERS: Unremarkable. No hydronephrosis. No solid mass. VASCULATURE: Unremarkable. No aortic aneurysm. BOWEL: Moderate segment of what is most likely distal jejunum with mural thickening and enhancement. Nonspecific finding. This is unlikely to reflect neoplastic disease given the length of the involved segment. . Atypical for lymphoproliferative disease and no associated lymphadenopathy. More likely infectious or inflammatory origin. Sigmoid diverticulosis without evidence of diverticulitis. APPENDIX: No evidence of appendicitis. Small appendicolith identified incidentally. PERITONEUM: Unremarkable. No free fluid. No free air. LYMPH NODES: Unremarkable. No enlarged lymph nodes. BLADDER: Unremarkable. REPRODUCTIVE: Unremarkable uterus BONES: Compression deformity of the L1 vertebra of indeterminate age. Minimal bony retropulsion. Multilevel degenerative disc disease of the lumbar spine. OTHER FINDINGS: None. IMPRESSION: Moderate length segment of abnormal small bowel with mild mural thickening and enhancement. Likely infectious or inflammatory etiology. Cholelithiasis. Sigmoid diverticulosis. Small bilateral pleural effusion and lower lobe compressive atelectasis.
[2017-05-01 17:39] LABS: BASO % 0.3 % (0.0-2.0); EOS # 0.1 K/uL (0.0-0.7); EOS % 1.2 % (0.0-4.0); HEMOGLOBIN 9.2 g/dL (11.0-16.0); LYMPH # 1.6 K/uL (1.0-4.3); LYMPH % 14.5 % (20.0-40.0); MEAN CELL VOLUME 88.4 fL (81.0-99.0); MEAN CORPUSCULAR HEMOGLOBIN 30.2 pg (27.0-31.0); MEAN CORPUSCULAR HGB CONC 34.2 g/dL (33.0-37.0); MEAN PLATELET VOLUME 6.9 fL (7.2-11.7); MONO # 1.2 K/uL (0.0-0.8); MONO % 11.2 % (0.0-10.0); NEUT # 7.9 K/uL (1.8-7.0); NEUT % 72.8 % (50.0-75.0); RBC 3.04 Mil/uL (3.80-5.20); RED CELL DISTRIBUTION WIDTH 15.3 % (11.5-14.5); WHITE BLOOD COUNT 10.8 K/uL (4.8-10.8)
--- NOTE | 2017-05-01 20:25 | CARD ---
APPROVED REPORT EKG Measurement Heart [id number] <Conclusion> Sinus rhythm with 1st degree AV block Left ventricular hypertrophy with repolarization abnormality Abnormal ECG
--- NOTE | 2017-05-01 22:48 | CP.PCM.PN ---
Subjective - Date & Time of Evaluation Date of Evaluation: 05/01/17 Time of Evaluation: 19:30 - Subjective Subjective: Patient seen and evaluated S/P GI work up No significant source of bleeding found For Cardiac Cath ([facility]) tomorrow to assess coronaries, PA pressures and Aortic stenosis D/W Patient and daughter Review of Systems - Constitutional Constitutional: Fatigue - EENT Eyes: absent: Blurred Vision Ears: absent: Decreased Hearing Nose/Mouth/Throat: absent: Epistaxis - Cardiovascular Cardiovascular: Dyspnea - Respiratory Respiratory: Dyspnea - Gastrointestinal Gastrointestinal: Melena - Musculoskeletal Musculoskeletal: absent: Arthralgias - Psychiatric Psychiatric: absent: Anxiety Physical Exam - Head Exam Head Exam: ATRAUMATIC, NORMAL INSPECTION, NORMOCEPHALIC - Eye Exam Eye Exam: EOMI, Normal appearance, PERRL Pupil Exam: NORMAL ACCOMODATION, PERRL - ENT Exam ENT Exam: Mucous Membranes Moist, Normal Exam - Neck Exam Neck exam: Positive for: Normal Inspection - Respiratory Exam Respiratory Exam: Clear to Auscultation Bilateral, NORMAL BREATHING PATTERN - Cardiovascular Exam Cardiovascular Exam: REGULAR RHYTHM, +S1, +S2, Systolic Murmur - GI/Abdominal Exam GI & Abdominal Exam: Normal Bowel Sounds, Soft - Neurological Exam Neurological exam: Alert, CN II-XII Intact, Oriented x3, Reflexes Normal - Psychiatric Exam Psychiatric exam: Normal Mood - Skin Skin Exam: Warm Objective - Vital Signs/Intake and Output Vital Signs (last 24 hours): Temp Pulse Resp BP Pulse Ox 98.4 F 68 20 154/73 H 96 05/01/17 15:42 05/01/17 15:42 05/01/17 15:42 05/01/17 15:42 05/01/17 15:42 Intake and Output: 05/01/17 05/02/17 18:59 06:59 Intake Total 400 Balance 400 - Medications Medications: Current Medications Ciprofloxacin (Cipro) 500 mg PO BID [facility] PRN Reason: Protocol Last Admin: 05/01/17 17:41 Dose: 500 mg Ferric Sodium Gluconate Complex (Ferrlecit) 125 mg IVPB DAILY [facility] Stop: 05/08/17 10:01 Last Admin: 05/01/17 10:54 Dose: 125 mg Levothyroxine Sodium (Synthroid) 112 mcg PO ACB [facility] Last Admin: 05/01/17 07:56 Dose: Not Given Losartan Potassium (Cozaar) 100 mg PO QOD [facility] Last Admin: 04/30/17 13:26 Dose: 100 mg Metformin HCl (Glucophage) 1,000 mg PO DAILY [facility] Last Admin: 05/01/17 11:18 Dose: Not Given Metoprolol Succinate (Toprol Xl) 25 mg PO DAILY [facility] Last Admin: 05/01/17 10:44 Dose: 25 mg Multivitamins/Minerals (Therapeutic-M Tab) 1 tab PO DAILY [facility] Last Admin: 05/01/17 10:44 Dose: 1 tab Pantoprazole Sodium (Protonix Inj) 40 mg IVP Q12H [facility] Last Admin: 05/01/17 22:10 Dose: 40 mg Rosuvastatin Calcium (Crestor) 5 mg PO HS [facility] Last Admin: 05/01/17 22:09 Dose: 5 mg - Labs Labs: 05/01/17 17:24 05/01/17 06:29 PT 12.9 SECONDS (9.7-12.2) H 04/29/17 09:39 INR 1.2 04/29/17 09:39 APTT 26 SECONDS (21-34) 04/29/17 09:39 Assessment and Plan - Assessment and Plan (Free Text) Assessment: 1. Aortic Stenosis: Severe (RAZ 1sq cm) 2. Hx of CAD s/p CABG Elevated Troponin most likely secondary to demand ischemia 3. Severe Pulmonary HTN and moderate MR 4. DM 2 5. HTN
[2017-05-02] MEDS: Levothyroxine 112 MCG TAB PO SCH (06:30)
[2017-05-02 07:24] LABS: HEMOGLOBIN 7.9 g/dL (11.0-16.0); MEAN CORPUSCULAR HEMOGLOBIN 30.7 pg (27.0-31.0); MEAN CORPUSCULAR HGB CONC 34.9 g/dL (33.0-37.0); MEAN PLATELET VOLUME 6.9 fL (7.2-11.7); RBC 2.57 Mil/uL (3.80-5.20); WHITE BLOOD COUNT 9.2 K/uL (4.8-10.8)
[2017-05-02 07:25] LABS: INR 1.3
[2017-05-02 07:43] LABS: BLOOD UREA NITROGEN 13 mg/dL (7-17); GFR AFRICAN-AMERICAN > 60; GFR NON-AFRICAN AMERICAN > 60
[2017-05-02] MEDS: Multivitamin With Minerals Tab PO SCH (10:26)
[2017-05-02] MEDS: Metoprolol Succinate 25 mg XL Tab PO SCH (10:26)
[2017-05-02] MEDS: Ferric Sodium Gluconat Complex 62.5 mg/5 ml Vial IVPB SCH (10:47)
[2017-05-02] MEDS: (Novolog) Insulin Aspart, Recombinant 100 u/ml 10 ml vial SC SCH ×3 (13:31→22:01)
--- NOTE | 2017-05-02 16:42 | CP.PCM.PN ---
Subjective - Date & Time of Evaluation Date of Evaluation: 05/02/17 Time of Evaluation: 13:30 - Subjective Subjective: -Patient had bowel movement this morning and overnight passing stools with dark red blood -H/H noted to have dropped to 7.9/22.6.Getting blood transfusion at this time -VS stable, no abdominal pain, no chest pain -cardiac cath postponed due to drop in H/H -CT Scan of the abdomen and pelvis abnormal- showed moderate length of the small bowel with mild mural thickening probably of inflammatory or infectious origin. Exact etio ? Objective - Vital Signs/Intake and Output Vital Signs (last 24 hours): Temp Pulse Resp BP Pulse Ox 99.4 F 67 20 136/67 98 05/02/17 15:37 05/02/17 15:37 05/02/17 15:37 05/02/17 15:37 05/02/17 15:37 Intake and Output: 05/02/17 05/02/17 06:59 18:59 Intake Total 0 Balance 0 - Medications Medications: Current Medications Ciprofloxacin (Cipro) 500 mg PO BID [facility] PRN Reason: Protocol Last Admin: 05/02/17 10:26 Dose: 500 mg Ferric Sodium Gluconate Complex (Ferrlecit) 125 mg IVPB DAILY [facility] Stop: 05/08/17 10:01 Last Admin: 05/02/17 10:47 Dose: 125 mg Insulin Aspart (Novolog) 0 unit SC ACHS [facility] PRN Reason: Protocol Last Admin: 05/02/17 13:31 Dose: 8 unit Levothyroxine Sodium (Synthroid) 112 mcg PO ACB [facility] Last Admin: 05/02/17 06:30 Dose: 112 mcg Losartan Potassium (Cozaar) 100 mg PO QOD [facility] Last Admin: 05/02/17 10:26 Dose: 100 mg Metformin HCl (Glucophage) 1,000 mg PO DAILY [facility] Last Admin: 05/01/17 11:18 Dose: Not Given Metoprolol Succinate (Toprol Xl) 25 mg PO DAILY [facility] Last Admin: 05/02/17 10:26 Dose: 25 mg Multivitamins/Minerals (Therapeutic-M Tab) 1 tab PO DAILY [facility] Last Admin: 05/02/17 10:26 Dose: 1 tab Pantoprazole Sodium (Protonix Inj) 40 mg IVP Q12H [facility] Last Admin: 05/02/17 08:16 Dose: 40 mg Rosuvastatin Calcium (Crestor) 5 mg PO HS [facility] Last Admin: 05/01/17 22:09 Dose: 5 mg - Labs Labs: 05/02/17 07:12 05/02/17 07:12 PT 15.0 SECONDS (9.7-12.2) H 05/02/17 07:12 INR 1.3 05/02/17 07:12 APTT 26 SECONDS (21-34) 04/29/17 09:39 - Constitutional Appears: No Acute Distress - Head Exam Head Exam: NORMAL INSPECTION - Neck Exam Neck Exam: Normal Inspection - Respiratory Exam Respiratory Exam: NORMAL BREATHING PATTERN - Cardiovascular Exam Cardiovascular Exam: REGULAR RHYTHM, +S1, +S2, Murmur - GI/Abdominal Exam GI & Abdominal Exam: Soft, Normal Bowel Sounds - Extremities Exam Extremities Exam: Normal Inspection - Neurological Exam Neurological Exam: Alert, Oriented x3 - Psychiatric Exam Psychiatric exam: Normal Affect, Normal Mood - Skin Skin Exam: Dry, Intact, Warm Assessment and Plan (1) GI (gastrointestinal bleed) Status: Acute (2) Anemia Status: Acute (3) CAD, multiple vessel Status: Acute (4) Aortic stenosis, severe Status: Chronic (5) Phlebitis Status: Acute (6) Diabetes mellitus Status: Ruled-out (7) Hypertension associated with diabetes Status: Chronic (8) Hyperlipidemia associated with type 2 diabetes mellitus Status: Chronic
--- NOTE | 2017-05-02 17:14 | CP.PCM.PN ---
Subjective - Date & Time of Evaluation Date of Evaluation: 05/02/17 Time of Evaluation: 17:11 - Subjective Subjective: Patient denies having abdominal pain, nausea and vomiting. She had two dark bowel movements today, and the HGB dropped from 9.2 to 7.9. She received an additional unit of PRBCs. Objective - Vital Signs/Intake and Output Vital Signs (last 24 hours): Temp Pulse Resp BP Pulse Ox 99.4 F 67 20 136/67 98 05/02/17 15:37 05/02/17 15:37 05/02/17 15:37 05/02/17 15:37 05/02/17 15:37 Intake and Output: 05/02/17 05/02/17 06:59 18:59 Intake Total 0 Balance 0 - Medications Medications: Current Medications Ciprofloxacin (Cipro) 500 mg PO BID [facility] PRN Reason: Protocol Last Admin: 05/02/17 10:26 Dose: 500 mg Ferric Sodium Gluconate Complex (Ferrlecit) 125 mg IVPB DAILY [facility] Stop: 05/08/17 10:01 Last Admin: 05/02/17 10:47 Dose: 125 mg Insulin Aspart (Novolog) 0 unit SC ACHS ANDREW PRN Reason: Protocol Last Admin: 05/02/17 13:31 Dose: 8 unit Levothyroxine Sodium (Synthroid) 112 mcg PO ACB [facility] Last Admin: 05/02/17 06:30 Dose: 112 mcg Losartan Potassium (Cozaar) 100 mg PO QOD [facility] Last Admin: 05/02/17 10:26 Dose: 100 mg Metformin HCl (Glucophage) 1,000 mg PO DAILY [facility] Last Admin: 05/01/17 11:18 Dose: Not Given Metoprolol Succinate (Toprol Xl) 25 mg PO DAILY [facility] Last Admin: 05/02/17 10:26 Dose: 25 mg Multivitamins/Minerals (Therapeutic-M Tab) 1 tab PO DAILY [facility] Last Admin: 05/02/17 10:26 Dose: 1 tab Pantoprazole Sodium (Protonix Inj) 40 mg IVP Q12H [facility] Last Admin: 05/02/17 08:16 Dose: 40 mg Rosuvastatin Calcium (Crestor) 5 mg PO HS [facility] Last Admin: 05/01/17 22:09 Dose: 5 mg - Labs Labs: 05/02/17 07:12 05/02/17 07:12 PT 15.0 SECONDS (9.7-12.2) H 05/02/17 07:12 INR 1.3 05/02/17 07:12 APTT 26 SECONDS (21-34) 04/29/17 09:39 - Constitutional Appears: No Acute Distress - Head Exam Head Exam: ATRAUMATIC, NORMOCEPHALIC - Eye Exam Eye Exam: EOMI, PERRL - Neck Exam Neck Exam: absent: Lymphadenopathy, Thyromegaly - Respiratory Exam Respiratory Exam: NORMAL BREATHING PATTERN. absent: Rales, Rhonchi, Wheezes - Cardiovascular Exam Cardiovascular Exam: REGULAR RHYTHM, +S1, +S2. absent: Gallop, Rubs, Murmur - GI/Abdominal Exam GI & Abdominal Exam: Soft, Normal Bowel Sounds. absent: Tenderness, Mass, Organomegaly - Rectal Exam Rectal Exam: absent: Deferred - Extremities Exam Extremities Exam: absent: Calf Tenderness, Pedal Edema Assessment and Plan (1) GI (gastrointestinal bleed) Assessment & Plan: Patient continues to pass dark stools, and required an additional unit of PRBCs today. CT scan showed non specific thickening of the wall of the distal jejunum. Plan is for cardiac catheterization tomorrow and capsule endoscopy as an outpatient. Status: Acute
[2017-05-02 19:56] LABS: HEMOGLOBIN 9.2 g/dL (11.0-16.0); MEAN CELL VOLUME 87.8 fL (81.0-99.0); MEAN CORPUSCULAR HEMOGLOBIN 29.7 pg (27.0-31.0); MEAN CORPUSCULAR HGB CONC 33.8 g/dL (33.0-37.0); MEAN PLATELET VOLUME 6.8 fL (7.2-11.7); RBC 3.11 Mil/uL (3.80-5.20); RED CELL DISTRIBUTION WIDTH 15.2 % (11.5-14.5); WHITE BLOOD COUNT 11.2 K/uL (4.8-10.8)
--- NOTE | 2017-05-02 23:13 | CP.PCM.PN ---
Subjective - Date & Time of Evaluation Date of Evaluation: 05/02/17 Time of Evaluation: 17:25 - Subjective Subjective: Patient seen and evaluated Cath postponed due to drop in Hgb Rescheduled for tomorrow im Review of Systems - Constitutional Constitutional: Fatigue - EENT Eyes: absent: Blurred Vision Ears: absent: Decreased Hearing Nose/Mouth/Throat: absent: Epistaxis - Cardiovascular Cardiovascular: Dyspnea - Respiratory Respiratory: Dyspnea - Gastrointestinal Gastrointestinal: Melena - Musculoskeletal Musculoskeletal: absent: Arthralgias - Psychiatric Psychiatric: absent: Anxiety Physical Exam - Head Exam Head Exam: ATRAUMATIC, NORMAL INSPECTION, NORMOCEPHALIC - Eye Exam Eye Exam: EOMI, Normal appearance, PERRL Pupil Exam: NORMAL ACCOMODATION, PERRL - ENT Exam ENT Exam: Mucous Membranes Moist, Normal Exam - Neck Exam Neck exam: Positive for: Normal Inspection - Respiratory Exam Respiratory Exam: Clear to Auscultation Bilateral, NORMAL BREATHING PATTERN - Cardiovascular Exam Cardiovascular Exam: REGULAR RHYTHM, +S1, +S2, Systolic Murmur - GI/Abdominal Exam GI & Abdominal Exam: Normal Bowel Sounds, Soft - Neurological Exam Neurological exam: Alert, CN II-XII Intact, Oriented x3, Reflexes Normal - Psychiatric Exam Psychiatric exam: Normal Mood - Skin Skin Exam: Warm Objective - Vital Signs/Intake and Output Vital Signs (last 24 hours): Temp Pulse Resp BP Pulse Ox 98.7 F 74 18 152/64 H 98 05/02/17 16:15 05/02/17 22:51 05/02/17 16:15 05/02/17 16:15 05/02/17 15:37 Intake and Output: 05/02/17 05/03/17 18:59 06:59 Intake Total 325 475 Balance 325 475 - Medications Medications: Current Medications Ciprofloxacin (Cipro) 500 mg PO BID ANDREW PRN Reason: Protocol Last Admin: 05/02/17 17:38 Dose: 500 mg Ferric Sodium Gluconate Complex (Ferrlecit) 125 mg IVPB DAILY [facility] Stop: 05/08/17 10:01 Last Admin: 05/02/17 10:47 Dose: 125 mg Insulin Aspart (Novolog) 0 unit SC ACHS ANDREW PRN Reason: Protocol Last Admin: 05/02/17 22:01 Dose: Not Given Levothyroxine Sodium (Synthroid) 112 mcg PO ACB [facility] Last Admin: 05/02/17 06:30 Dose: 112 mcg Losartan Potassium (Cozaar) 100 mg PO QOD [facility] Last Admin: 05/02/17 10:26 Dose: 100 mg Metformin HCl (Glucophage) 1,000 mg PO DAILY [facility] Last Admin: 05/01/17 11:18 Dose: Not Given Metoprolol Succinate (Toprol Xl) 25 mg PO DAILY [facility] Last Admin: 05/02/17 10:26 Dose: 25 mg Multivitamins/Minerals (Therapeutic-M Tab) 1 tab PO DAILY [facility] Last Admin: 05/02/17 10:26 Dose: 1 tab Pantoprazole Sodium (Protonix Inj) 40 mg IVP Q12H [facility] Last Admin: 05/02/17 19:58 Dose: 40 mg Rosuvastatin Calcium (Crestor) 5 mg PO HS [facility] Last Admin: 05/02/17 22:00 Dose: 5 mg - Labs Labs: 05/02/17 19:51 05/02/17 07:12 PT 15.0 SECONDS (9.7-12.2) H 05/02/17 07:12 INR 1.3 05/02/17 07:12 APTT 26 SECONDS (21-34) 04/29/17 09:39 Assessment and Plan - Assessment and Plan (Free Text) Assessment: 1. Aortic Stenosis: Severe (RAZ 1sq cm) 2. Hx of CAD s/p CABG Elevated Troponin most likely secondary to demand ischemia 3. Severe Pulmonary HTN and moderate MR 4. DM 2 5. HTN
[2017-05-03] MEDS ORDERED: Lidocaine 2% Inj (20ml) ONE (07:07)
[2017-05-03] MEDS ORDERED: Midazolam 2 MG/2 ML VIAL ONE (07:08)
[2017-05-03] MEDS ORDERED: Iodixanol 320 MG/ML 200 ML BOTTLE IV ONE ×3 (07:08→08:04)
[2017-05-03] MEDS ORDERED: Heparin 2,000 ML IV ONE (07:39)
[2017-05-03] MEDS: (Novolog) Insulin Aspart, Recombinant 100 u/ml 10 ml vial SC SCH ×4 (07:44→21:37)
--- NOTE | 2017-05-03 08:43 | CP.PCM.PN ---
Subjective - Date & Time of Evaluation Date of Evaluation: 05/03/17 Time of Evaluation: 08:40 - Subjective Subjective: Patient s/p RLHC 1. L Main: Patent 2. LAD: Distal 100% 3. L Cx: Proximal 100% 4. RCA: Non dominant 100%. Right to right collaterals 5. LOGAN to LAD patent 6. SVG to OM: Patent 7. SVG to Diag: Patent 8. Severe (RAZ 0.8 sqcm) 9. EF: 50-55% Plan: No coronary intervention needed For TAVR in 2-4 weeks as out patient once GIB stabilized Objective - Vital Signs/Intake and Output Vital Signs (last 24 hours): Temp Pulse Resp BP Pulse Ox 98.1 F 79 20 166/71 H 97 05/02/17 23:10 05/02/17 23:10 05/02/17 23:10 05/02/17 23:10 05/02/17 23:10 Intake and Output: 05/03/17 05/03/17 06:59 18:59 Intake Total 475 Balance 475 - Medications Medications: Current Medications Ciprofloxacin (Cipro) 500 mg PO BID ANDREW PRN Reason: Protocol Last Admin: 05/02/17 17:38 Dose: 500 mg Ferric Sodium Gluconate Complex (Ferrlecit) 125 mg IVPB DAILY [facility] Stop: 05/08/17 10:01 Last Admin: 05/02/17 10:47 Dose: 125 mg Insulin Aspart (Novolog) 0 unit SC ACHS [facility]REW PRN Reason: Protocol Last Admin: 05/03/17 07:44 Dose: Not Given Levothyroxine Sodium (Synthroid) 112 mcg PO ACB [facility] Last Admin: 05/02/17 06:30 Dose: 112 mcg Losartan Potassium (Cozaar) 100 mg PO QOD [facility] Last Admin: 05/02/17 10:26 Dose: 100 mg Metformin HCl (Glucophage) 1,000 mg PO DAILY [facility] Last Admin: 05/01/17 11:18 Dose: Not Given Metoprolol Succinate (Toprol Xl) 25 mg PO DAILY [facility] Last Admin: 05/02/17 10:26 Dose: 25 mg Multivitamins/Minerals (Therapeutic-M Tab) 1 tab PO DAILY [facility] Last Admin: 05/02/17 10:26 Dose: 1 tab Pantoprazole Sodium (Protonix Inj) 40 mg IVP Q12H [facility] Last Admin: 05/02/17 19:58 Dose: 40 mg Rosuvastatin Calcium (Crestor) 5 mg PO HS [facility] Last Admin: 05/02/17 22:00 Dose: 5 mg - Labs Labs: 05/02/17 19:51 05/02/17 07:12 PT 15.0 SECONDS (9.7-12.2) H 05/02/17 07:12 INR 1.3 05/02/17 07:12 APTT 26 SECONDS (21-34) 04/29/17 09:39
[2017-05-03 11:21] LABS: HEMOGLOBIN 9.2 g/dL (11.0-16.0); MEAN CELL VOLUME 88.4 fL (81.0-99.0); MEAN CORPUSCULAR HEMOGLOBIN 30.4 pg (27.0-31.0); MEAN CORPUSCULAR HGB CONC 34.4 g/dL (33.0-37.0); MEAN PLATELET VOLUME 6.9 fL (7.2-11.7); RBC 3.04 Mil/uL (3.80-5.20); RED CELL DISTRIBUTION WIDTH 15.4 % (11.5-14.5); WHITE BLOOD COUNT 8.7 K/uL (4.8-10.8)
[2017-05-03] MEDS: Metoprolol Succinate 25 mg XL Tab PO SCH (11:40)
[2017-05-03] MEDS: Levothyroxine 112 MCG TAB PO SCH (11:40)
[2017-05-03] MEDS: Multivitamin With Minerals Tab PO SCH (11:40)
[2017-05-03] MEDS: Ferric Sodium Gluconat Complex 62.5 mg/5 ml Vial IVPB SCH (11:41)
[2017-05-03 12:31] LABS: ARTERIAL BLOOD GAS HCO3 22.5 mmol/L (21-28); ARTERIAL BLOOD GAS PCO2 32 mm/Hg (35-45); ARTERIAL BLOOD GAS PH 7.42 (7.35-7.45); ARTERIAL BLOOD GAS PO2 86 mm/Hg (80-100)
--- NOTE | 2017-05-03 12:31 | CARD ---
APPROVED REPORT EKG Measurement Heart [id number] <Conclusion> Accelerated Junctional rhythm ST & T wave abnormality, consider inferior ischemia Abnormal ECG
[2017-05-03 12:33] LABS: ARTERIAL BLOOD GAS HEMOGLOBIN 8.9 g/dL (11.7-17.4); ARTERIAL BLOOD GAS TCO2 21.8 mmol/L (22-28)
[2017-05-03 12:34] LABS: ARTERIAL BLOOD GAS O2 SAT 98.9 % (95-98)
[2017-05-03 12:37] LABS: VENOUS BLOOD GAS BASE EXCESS -2.6 mmol/L (0.0-2.0); VENOUS BLOOD GAS PCO2 40 mmHg (40-60); VENOUS BLOOD GAS PO2 34 mm/Hg (30-55); VENOUS BLOOD PH 7.36 (7.32-7.43)
--- NOTE | 2017-05-03 17:42 | CP.PCM.PN ---
Subjective - Date & Time of Evaluation Date of Evaluation: 05/03/17 Time of Evaluation: 16:05 - Subjective Subjective: Patient denies having nausea, vomiting, abdominal pain. She had one small, dark stool today. Objective - Vital Signs/Intake and Output Vital Signs (last 24 hours): Temp Pulse Resp BP Pulse Ox 99.0 F 69 20 137/51 L 98 05/03/17 15:23 05/03/17 15:23 05/03/17 15:23 05/03/17 15:23 05/03/17 15:23 Intake and Output: 05/03/17 05/03/17 06:59 18:59 Intake Total 475 Balance 475 - Medications Medications: Current Medications Ciprofloxacin (Cipro) 500 mg PO BID ANDREW PRN Reason: Protocol Last Admin: 05/03/17 17:31 Dose: 500 mg Insulin Aspart (Novolog) 0 unit SC ACHS [facility]REW PRN Reason: Protocol Last Admin: 05/03/17 17:32 Dose: 3 unit Levothyroxine Sodium (Synthroid) 112 mcg PO ACB [facility] Last Admin: 05/03/17 11:40 Dose: 112 mcg Losartan Potassium (Cozaar) 100 mg PO QOD [facility] Last Admin: 05/02/17 10:26 Dose: 100 mg Metformin HCl (Glucophage) 1,000 mg PO DAILY [facility] Last Admin: 05/01/17 11:18 Dose: Not Given Metoprolol Succinate (Toprol Xl) 25 mg PO DAILY [facility] Last Admin: 05/03/17 11:40 Dose: 25 mg Multivitamins/Minerals (Therapeutic-M Tab) 1 tab PO DAILY [facility] Last Admin: 05/03/17 11:40 Dose: 1 tab Pantoprazole Sodium (Protonix Inj) 40 mg IVP Q12H [facility] Last Admin: 05/03/17 11:41 Dose: 40 mg Rosuvastatin Calcium (Crestor) 5 mg PO HS [facility] Last Admin: 05/02/17 22:00 Dose: 5 mg - Labs Labs: 05/03/17 11:11 05/02/17 07:12 PT 15.0 SECONDS (9.7-12.2) H 05/02/17 07:12 INR 1.3 05/02/17 07:12 APTT 26 SECONDS (21-34) 04/29/17 09:39 - Constitutional Appears: No Acute Distress - Head Exam Head Exam: ATRAUMATIC, NORMOCEPHALIC - Eye Exam Eye Exam: EOMI, PERRL - Neck Exam Neck Exam: absent: Lymphadenopathy, Thyromegaly - Respiratory Exam Respiratory Exam: NORMAL BREATHING PATTERN. absent: Rales, Rhonchi, Wheezes - Cardiovascular Exam Cardiovascular Exam: REGULAR RHYTHM, +S1, +S2. absent: Gallop, Rubs, Murmur - GI/Abdominal Exam GI & Abdominal Exam: Soft, Normal Bowel Sounds. absent: Tenderness, Mass, Organomegaly - Rectal Exam Rectal Exam: Deferred - Extremities Exam Extremities Exam: absent: Calf Tenderness, Full ROM Assessment and Plan (1) GI (gastrointestinal bleed) Assessment & Plan: Patient reports that the bowel movements remain dark, though the HGB is unchanged at 9.2. She is otherwise asymptomatic. The cardiac catheterization showed normal coronary arteries and sever . The patient's family is reluctant to take her home without having a definitive source for the bleeding. They are considering transfer to [facility]. I agree with the plan to transfer her to a hospital which can perform capsule endoscopy and double balloon enteroscopy, which will be the next steps in the work up. Status: Acute
--- NOTE | 2017-05-03 18:12 | CP.PCM.PN ---
Subjective - Date & Time of Evaluation Date of Evaluation: 05/03/17 Time of Evaluation: 17:30 - Subjective Subjective: -Patient comfortable. No abdominal discomfort, nausea or vomiting, bm noted -bleeding seems to be under control at this time -H/H stable at 9.2/26.9 -Will repeat H/H tomorrow and if stable and bm ok, will plan discharge and schedule capsule endoscopy outpatient monitoring H/H op. -Consultants' notes read and appreciated -Cardiac cath showed severe , no coronary intervention needed Objective - Vital Signs/Intake and Output Vital Signs (last 24 hours): Temp Pulse Resp BP Pulse Ox 99.0 F 69 20 137/51 L 98 05/03/17 15:23 05/03/17 15:23 05/03/17 15:23 05/03/17 15:23 05/03/17 15:23 Intake and Output: 05/03/17 05/03/17 06:59 18:59 Intake Total 475 Balance 475 - Medications Medications: Current Medications Ciprofloxacin (Cipro) 500 mg PO BID [facility] PRN Reason: Protocol Last Admin: 05/03/17 17:31 Dose: 500 mg Insulin Aspart (Novolog) 0 unit SC ACHS ANDREW PRN Reason: Protocol Last Admin: 05/03/17 17:32 Dose: 3 unit Levothyroxine Sodium (Synthroid) 112 mcg PO ACB [facility] Last Admin: 05/03/17 11:40 Dose: 112 mcg Losartan Potassium (Cozaar) 100 mg PO QOD [facility] Last Admin: 05/02/17 10:26 Dose: 100 mg Metformin HCl (Glucophage) 1,000 mg PO DAILY [facility] Last Admin: 05/01/17 11:18 Dose: Not Given Metoprolol Succinate (Toprol Xl) 25 mg PO DAILY [facility] Last Admin: 05/03/17 11:40 Dose: 25 mg Multivitamins/Minerals (Therapeutic-M Tab) 1 tab PO DAILY [facility] Last Admin: 05/03/17 11:40 Dose: 1 tab Pantoprazole Sodium (Protonix Inj) 40 mg IVP Q12H [facility] Last Admin: 05/03/17 11:41 Dose: 40 mg Rosuvastatin Calcium (Crestor) 5 mg PO HS [facility] Last Admin: 05/02/17 22:00 Dose: 5 mg - Labs Labs: 05/03/17 11:11 05/02/17 07:12 PT 15.0 SECONDS (9.7-12.2) H 05/02/17 07:12 INR 1.3 05/02/17 07:12 APTT 26 SECONDS (21-34) 04/29/17 09:39 - Constitutional Appears: No Acute Distress - Eye Exam Eye Exam: Normal appearance - Neck Exam Neck Exam: Normal Inspection - Respiratory Exam Respiratory Exam: Clear to Ausculation Bilateral, NORMAL BREATHING PATTERN - Cardiovascular Exam Cardiovascular Exam: REGULAR RHYTHM, +S1, +S2, Murmur - GI/Abdominal Exam GI & Abdominal Exam: Soft, Normal Bowel Sounds - Extremities Exam Extremities Exam: Normal Inspection - Psychiatric Exam Psychiatric exam: Normal Affect, Normal Mood - Skin Skin Exam: Dry, Intact, Normal Color, Warm Assessment and Plan (1) GI (gastrointestinal bleed) Assessment & Plan: Had 1 dark bm this morning. No abdominal discomfort otherwise. Source of bleeding still unknown. Endoscopies did not shwo any active bleeding site. CT Scan showed small bowel segment abnormal- etio? -Discussed with GI and patient will need capsule endoscopy outpatient if patient can be discharged when H/H stabilizes. Status: Acute (2) Anemia Assessment & Plan: H/H- . Will repeat tomorrow and monitor for any drop. If no further drop may discharge and schedule outpatient capsule endoscopy as discussed with GI. Status: Acute (3) CAD, multiple vessel Assessment & Plan: cardiac cath findings- no coronary intervention needed but has severe and will eventually need TAVR Status: Acute (4) Aortic stenosis, severe Assessment & Plan: Has severe shown on cardiac cath and can be scheduled for TAVR once bleeding is under control. Status: Chronic (5) Phlebitis Assessment & Plan: on Cipro and improving Status: Acute (6) Hypertension associated with diabetes Assessment & Plan: controlled-continue current meds Status: Resolved (7) Hyperlipidemia associated with type 2 diabetes mellitus Assessment & Plan: stable Status: Chronic (8) Controlled diabetes mellitus Assessment & Plan: controlled on current meds- HgbA1c- around 6 Status: Acute
[2017-05-04] MEDS: Levothyroxine 112 MCG TAB PO SCH (06:39)
[2017-05-04 07:40] LABS: HEMOGLOBIN 8.1 g/dL (11.0-16.0); MEAN CELL VOLUME 87.8 fL (81.0-99.0); MEAN CORPUSCULAR HEMOGLOBIN 30.9 pg (27.0-31.0); MEAN CORPUSCULAR HGB CONC 35.2 g/dL (33.0-37.0); RBC 2.63 Mil/uL (3.80-5.20); RED CELL DISTRIBUTION WIDTH 15.6 % (11.5-14.5); WHITE BLOOD COUNT 9.9 K/uL (4.8-10.8)
[2017-05-04 07:42] LABS: BLOOD UREA NITROGEN 20 mg/dL (7-17); GFR AFRICAN-AMERICAN > 60; GFR NON-AFRICAN AMERICAN > 60
[2017-05-04] MEDS: (Novolog) Insulin Aspart, Recombinant 100 u/ml 10 ml vial SC SCH ×2 (08:17→12:45)
[2017-05-04 08:19] VITALS: O2SAT 97
[2017-05-04] MEDS: Metoprolol Succinate 25 mg XL Tab PO SCH (09:36)
[2017-05-04] MEDS: Multivitamin With Minerals Tab PO SCH (09:37)
--- NOTE | 2017-05-04 10:03 | CP.PCM.DIS ---
Provider - Provider Date of Admission: 04/29/17 10:22 Attending physician: Pallavi Infante MD Primary care physician: Justin Infante Consults: Arlette Rubalcava M Time Spent in preparation of Discharge (in minutes): 45 Diagnosis - Discharge Diagnosis (1) GI (gastrointestinal bleed) Status: Acute Priority: High (2) Anemia Status: Acute Priority: High (3) CAD, multiple vessel Status: Acute Priority: Medium (4) Aortic stenosis, severe Status: Chronic Priority: High (5) Phlebitis Status: Acute Priority: Medium (6) Hypertension associated with diabetes Status: Resolved Priority: Low (7) Hyperlipidemia associated with type 2 diabetes mellitus Status: Chronic Priority: Low (8) Controlled diabetes mellitus Status: Acute Priority: Medium Hospital Course - Lab Results Lab Results: Most Recent Lab Values WBC 9.9 K/uL (4.8-10.8) 05/04/17 07:14 RBC 2.63 Mil/uL (3.80-5.20) L 05/04/17 07:14 Hgb 8.1 g/dL (11.0-16.0) L 05/04/17 07:14 Hct 23.1 % (34.0-47.0) L 05/04/17 07:14 MCV 87.8 fL (81.0-99.0) 05/04/17 07:14 MCH 30.9 pg (27.0-31.0) 05/04/17 07:14 MCHC 35.2 g/dL (33.0-37.0) 05/04/17 07:14 RDW 15.6 % (11.5-14.5) H 05/04/17 07:14 Plt Count 305 K/uL (130-400) 05/04/17 07:14 MPV 7.0 fL (7.2-11.7) L 05/04/17 07:14 Neut % (Auto) 72.8 % (50.0-75.0) 05/01/17 17:24 Lymph % (Auto) 14.5 % (20.0-40.0) L 05/01/17 17:24 [place] % (Auto) 11.2 % (0.0-10.0) H 05/01/17 17:24 Eos % (Auto) 1.2 % (0.0-4.0) 05/01/17 17:24 Baso % (Auto) 0.3 % (0.0-2.0) 05/01/17 17:24 Neut # (Auto) 7.9 K/uL (1.8-7.0) H 05/01/17 17:24 Lymph # (Auto) 1.6 K/uL (1.0-4.3) 05/01/17 17:24 [place] # (Auto) 1.2 K/uL (0.0-0.8) H 05/01/17 17:24 Eos # (Auto) 0.1 K/uL (0.0-0.7) 05/01/17 17:24 Baso # (Auto) 0.0 K/uL (0.0-0.2) 05/01/17 17:24 Retic Count 5.4 % (0.5-1.5) H D 05/01/17 13:58 Haptoglobin 238 mg/dL (43-212) H 05/01/17 13:58 PT 15.0 SECONDS (9.7-12.2) H 05/02/17 07:12 INR 1.3 05/02/17 07:12 APTT 26 SECONDS (21-34) 04/29/17 09:39 Puncture Site Ao 05/03/17 07:21 pCO2 32 mm/Hg (35-45) L 05/03/17 07:21 pO2 86 mm/Hg (80-100) 05/03/17 07:21 HCO3 22.5 mmol/L (21-28) 05/03/17 07:21 ABG pH 7.42 (7.35-7.45) 05/03/17 07:21 ABG Total CO2 21.8 mmol/L (22-28) L 05/03/17 07:21 ABG O2 Saturation 98.9 % (95-98) H 05/03/17 07:21 ABG Base Excess -3.1 mmol/L (-2.0-3.0) L 05/03/17 07:21 ABG Hemoglobin 8.9 g/dL (11.7-17.4) L 05/03/17 07:21 ABG Carboxyhemoglobin 2.8 % (0.5-1.5) H 05/03/17 07:21 POC ABG HHb (Measured) 1.1 % (0.0-5.0) 05/03/17 07:21 ABG Methemoglobin 1.3 % (0.0-3.0) 05/03/17 07:21 [place] Test Na 05/03/17 07:21 VBG pH 7.36 (7.32-7.43) 05/03/17 07:20 VBG pCO2 40 mmHg (40-60) 05/03/17 07:20 VBG HCO3 22.4 mmol/L 05/03/17 07:20 VBG O2 Sat (Calc) 71.4 % (40-65) H 05/03/17 07:20 VBG Base Excess -2.6 mmol/L (0.0-2.0) L 05/03/17 07:20 Hgb O2 Saturation 94.8 % (95.0-98.0) L 05/03/17 07:21 Sodium 135 mmol/L (132-148) 05/04/17 07:14 Potassium 3.7 mmol/L (3.6-5.2) 05/04/17 07:14 Chloride 107 mmol/L (98-107) 05/04/17 07:14 Carbon Dioxide 22 mmol/L (22-30) 05/04/17 07:14 Anion Gap 10 (10-20) 05/04/17 07:14 BUN 20 mg/dL (7-17) H 05/04/17 07:14 Creatinine 0.9 mg/dL (0.7-1.2) 05/04/17 07:14 Est GFR ( Amer) > 60 05/04/17 07:14 Est GFR (Non-Af Amer) > 60 05/04/17 07:14 POC Glucose (mg/dL) 262 mg/dL (65-110) H 05/03/17 20:56 Random Glucose 153 mg/dL (65-105) H 05/04/17 07:14 Hemoglobin A1c 5.8 % (4.2-6.5) 04/30/17 07:25 Calcium 8.0 mg/dl (8.6-10.4) L 05/04/17 07:14 Iron 39 ug/dL (37-170) 04/29/17 13:46 TIBC 269 ug/dL (250-450) 04/29/17 13:46 % Saturation 14 (20-55) L 04/29/17 13:46 Total Bilirubin 0.4 mg/dL (0.2-1.3) 05/01/17 06:29 AST 20 U/L (14-36) 05/01/17 06:29 ALT 22 U/L (9-52) 05/01/17 06:29 Alkaline Phosphatase 43 U/L (38-126) 05/01/17 06:29 Lactate Dehydrogenase 411 U/L (313-618) 05/01/17 13:58 Total Creatine Kinase 20 U/L (30-135) L 05/01/17 06:29 CK-MB (Mass) 1.05 ng/mL (0.0-3.38) 05/01/17 06:29 Troponin I 0.2850 ng/mL (0.00-0.120) H* 05/01/17 06:29 Total Protein 5.6 g/dL (6.3-8.3) L 05/01/17 06:29 Albumin 3.0 g/dL (3.5-5.0) L 05/01/17 06:29 Globulin 2.6 gm/dL (2.2-3.9) 05/01/17 06:29 Albumin/Globulin Ratio 1.1 (1.0-2.1) 05/01/17 06:29 Vitamin B12 427 pg/mL (239-931) 04/29/17 13:46 Folate > 20.0 ng/mL 04/29/17 13:46 Urine Color Colorless (YELLOW) 04/30/17 04:42 Urine Clarity Clear (Clear) 04/30/17 04:42 Urine pH 5.0 (5.0-8.0) 04/30/17 04:42 Ur Specific [place] 1.010 (1.003-1.030) 04/30/17 04:42 Urine Protein Negative mg/dL (NEGATIVE) 04/30/17 04:42 Urine Glucose (UA) Normal mg/dL (Normal) 04/30/17 04:42 Urine Ketones Negative mg/dL (NEGATIVE) 04/30/17 04:42 Urine Blood Negative (NEGATIVE) 04/30/17 04:42 Urine Nitrate Negative (NEGATIVE) 04/30/17 04:42 Urine Bilirubin Negative (NEGATIVE) 04/30/17 04:42 Urine Urobilinogen Normal mg/dL (0.2-1.0) 04/30/17 04:42 Ur Leukocyte Esterase Trace [place]/uL (Negative) 04/30/17 04:42 Urine WBC (Auto) 7 /hpf (0-5) H 04/30/17 04:42 Urine RBC (Auto) < 1 /hpf (0-3) 04/30/17 04:42 Ur Squamous Epith Cells < 1 /hpf (0-5) 04/30/17 04:42 Stool Occult Blood Positive (NEGATIVE) H 04/29/17 21:02 Blood Type A POSITIVE 05/02/17 11:19 Antibody Screen Negative 05/02/17 11:19 - Hospital Course Hospital Course: This is a 77 y/o female, known CAD, S/P CABG, , hypertensive, diabetic admitted because of severe weakness, shortness of breath and near syncope because of severe anemia from GI Bleed. This is her second admission within a week for the same problem. She had undergone uper endoscopy and colonoscopy that did not show any bleeding site. She was also noted to bump her cardiac enzymes whenever she came in consistent with NSTEMI with severely low H/H and cardiac cath was done that showed severe as seen on echo with patent LOGAN to LAD, patent SVG to diagonal and circ and right to right collaterals. She was initially transfused 2 units of packed RBC but needed 2 more units of blood because of continuous drop of H/H/ She has also continued to pass dark red blood per rectum despite negative findings on endoscopies. She had CT Scan of the Abdomen and Pelvis that showed a moderate segment of mural thickening of the small bowel said to be of probable inflammatory or infectious origin. Because of her high risk condition from persistent bleeding, she is now being transferred to [facility] for further evaluation and management. Discharge Exam - Head Exam Head Exam: NORMAL INSPECTION Discharge Plan - Follow Up Plan Condition: GOOD Disposition: HOME/ ROUTINE Additional Instructions: For TAVR in 2-4 weeks as out patient once GIB stabilized per Dr. Buchanan (Cardio)
[2017-05-04 10:37] VITALS: RESP 20
[2017-05-04 13:25] VITALS: PULSE 73
--- NOTE | 2017-05-04 13:37 | CP.PCM.PN ---
Subjective - Date & Time of Evaluation Date of Evaluation: 05/04/17 Time of Evaluation: 13:20 - Subjective Subjective: Patient denies having nausea, vomiting, abdominal pain. She has not had any bowel movements or bleeding since yesterday, though the HGB dropped from 9.2 ro 8.1. Another unit of PRBCs is being transfused. Objective - Vital Signs/Intake and Output Vital Signs (last 24 hours): Temp Pulse Resp BP Pulse Ox 98.8 F 73 20 157/57 H 97 05/04/17 11:36 05/04/17 11:36 05/04/17 11:36 05/04/17 11:36 05/04/17 08:18 Intake and Output: 05/04/17 05/04/17 06:59 18:59 Intake Total 420 0 Balance 420 0 - Medications Medications: Current Medications Ciprofloxacin (Cipro) 500 mg PO BID ANDREW PRN Reason: Protocol Last Admin: 05/04/17 09:36 Dose: 500 mg Insulin Aspart (Novolog) 0 unit SC ACHS ANDREW PRN Reason: Protocol Last Admin: 05/04/17 12:45 Dose: 8 unit Levothyroxine Sodium (Synthroid) 112 mcg PO ACB ANDREW Last Admin: 05/04/17 06:39 Dose: 112 mcg Losartan Potassium (Cozaar) 100 mg PO QOD ANDREW Last Admin: 05/04/17 09:37 Dose: 100 mg Metformin HCl (Glucophage) 1,000 mg PO DAILY ANDREW Last Admin: 05/04/17 09:39 Dose: Not Given Metoprolol Succinate (Toprol Xl) 25 mg PO DAILY ANDREW Last Admin: 05/04/17 09:36 Dose: 25 mg Multivitamins/Minerals (Therapeutic-M Tab) 1 tab PO DAILY ANDREW Last Admin: 05/04/17 09:37 Dose: 1 tab Pantoprazole Sodium (Protonix Inj) 40 mg IVP Q12H ANDREW Last Admin: 05/04/17 08:18 Dose: 40 mg Rosuvastatin Calcium (Crestor) 5 mg PO HS ANDREW Last Admin: 05/03/17 21:56 Dose: 5 mg - Labs Labs: 05/04/17 07:14 05/04/17 07:14 PT 15.0 SECONDS (9.7-12.2) H 05/02/17 07:12 INR 1.3 05/02/17 07:12 APTT 26 SECONDS (21-34) 04/29/17 09:39 - Constitutional Appears: No Acute Distress - Head Exam Head Exam: ATRAUMATIC, NORMOCEPHALIC - Eye Exam Eye Exam: EOMI - Neck Exam Neck Exam: absent: Lymphadenopathy, Thyromegaly - Respiratory Exam Respiratory Exam: NORMAL BREATHING PATTERN. absent: Rales, Rhonchi, Wheezes - Cardiovascular Exam Cardiovascular Exam: REGULAR RHYTHM, +S1, +S2. absent: Gallop, Rubs, Murmur - GI/Abdominal Exam GI & Abdominal Exam: Soft, Normal Bowel Sounds. absent: Tenderness, Mass, Organomegaly - Rectal Exam Rectal Exam: Deferred - Extremities Exam Extremities Exam: Pedal Edema. absent: Calf Tenderness Additional comments: Trace edema LLE Assessment and Plan (1) GI (gastrointestinal bleed) Assessment & Plan: Patient has not had any overt bleeding, but the HGB dropped from 9.2 to 8.1, and an additional unit of PRBCs is being transfused. I agree with the plan to transfer her to [facility] for further workup. Status: Acute
[2017-05-04 15:25] VITALS: BP 167/64; TEMP 98.4
--- NOTE | 2017-05-04 22:53 | CP.PCM.PN ---
Subjective - Date & Time of Evaluation Date of Evaluation: 05/04/17 Time of Evaluation: 08:05 - Subjective Subjective: Patient seen and evaluated Hgb dropped to 8.2 One unit of PRBC Transfer to [place] for further GI management Review of Systems - Constitutional Constitutional: Fatigue - EENT Eyes: absent: Blurred Vision Ears: absent: Decreased Hearing Nose/Mouth/Throat: absent: Epistaxis - Cardiovascular Cardiovascular: Dyspnea - Respiratory Respiratory: Dyspnea - Gastrointestinal Gastrointestinal: Melena - Musculoskeletal Musculoskeletal: absent: Arthralgias - Psychiatric Psychiatric: absent: Anxiety Physical Exam - Head Exam Head Exam: ATRAUMATIC, NORMAL INSPECTION, NORMOCEPHALIC - Eye Exam Eye Exam: EOMI, Normal appearance, PERRL Pupil Exam: NORMAL ACCOMODATION, PERRL - ENT Exam ENT Exam: Mucous Membranes Moist, Normal Exam - Neck Exam Neck exam: Positive for: Normal Inspection - Respiratory Exam Respiratory Exam: Clear to Auscultation Bilateral, NORMAL BREATHING PATTERN - Cardiovascular Exam Cardiovascular Exam: REGULAR RHYTHM, +S1, +S2, Systolic Murmur - GI/Abdominal Exam GI & Abdominal Exam: Normal Bowel Sounds, Soft - Neurological Exam Neurological exam: Alert, CN II-XII Intact, Oriented x3, Reflexes Normal - Psychiatric Exam Psychiatric exam: Normal Mood - Skin Skin Exam: Warm Objective - Vital Signs/Intake and Output Vital Signs (last 24 hours): Temp Pulse Resp BP Pulse Ox 98.4 F 73 20 167/64 H 97 05/04/17 13:45 05/04/17 13:45 05/04/17 13:45 05/04/17 13:45 05/04/17 08:18 Intake and Output: 05/04/17 05/05/17 18:59 06:59 Intake Total 325 Balance 325 - Labs Labs: 05/04/17 07:14 05/04/17 07:14 PT 15.0 SECONDS (9.7-12.2) H 05/02/17 07:12 INR 1.3 05/02/17 07:12 APTT 26 SECONDS (21-34) 04/29/17 09:39 Assessment and Plan - Assessment and Plan (Free Text) Assessment: 1. Aortic Stenosis: Severe (RAZ 1sq cm) 2. Hx of CAD s/p CABG Elevated Troponin most likely secondary to demand ischemia 3. Severe Pulmonary HTN and moderate MR 4. DM 2 5. HTN
--- NOTE | 2017-05-06 03:47 | CARDCATH ---
PROCEDURE DATE: 05/03/2017 PROCEDURES: 1. Right and left heart catheterization. 2. Coronary angiogram. 3. Saphenous vein graft angiogram. 4. LOGAN graft to LAD angiogram. CLINICAL INDICATIONS: 1. Dyspnea on minimal exertion. 2. Severe symptomatic aortic stenosis. 3. History of coronary artery disease. 4. History of CABG. 5. Hypertension. 6. Pulmonary hypertension. 7. Mitral regurgitation. 8. Gastrointestinal bleeding. REFERRING PHYSICIAN: Pallavi Douglas MD PERFORMING PHYSICIAN: Carlos Buchanan M.D. DESCRIPTION OF PROCEDURE: After informed consent, the patient was prepped and draped in the usual sterile fashion. A 2% lidocaine was given in the right groin for local anesthesia. Using micropuncture technique, 6-[place] sheath was introduced into right common femoral artery and 7-[place] sheath was introduced into right common femoral vein. Using [place]-Vidhya catheter, right heart catheterization was performed. A JL4 6-inch diagnostic catheter engaged into left main coronary artery. Contrast injected and left coronary arteriogram was performed. Then, JR4 6-inch diagnostic catheter was engaged into right coronary artery. Contrast injected and right coronary arteriogram was performed. Using the same catheter, saphenous vein graft angiogram was performed. A 6-[place] IM catheter engaged into LOGAN graft. Contract injected, LOGAN to LAD graft angiogram was performed. Using straight St[place] catheter, aortic valve was crossed. [place] pigtail was introduced into left ventricle. Using simultaneous pressures, mean gradient across the aortic valve was measured. LV end diastolic pressure was measured. Contrast injected and LV angiogram was performed. The patient tolerated the procedure well. Findings of the left heart catheterization: 1. Left main coronary artery is patent. 2. Distal LAD is 100% occluded. 3. Proximal circumflex is 100% occluded. 4. Right coronary artery is nondominant. Occluded 100% in the mid region. There are bridge collaterals noted. 5. LOGAN graft to LAD is patent. However, distal to the anastomosis, the distal LAD has a diffuse disease. 6. Saphenous vein graft to obtuse marginal artery is patent. 7. Saphenous vein graft to diagonal branch is patent. 8. LV ejection fraction is approximately 60%. No wall motion abnormalities noted. EDP is 18. Mean gradient across the aortic valve is 35. LV end-diastolic pressure is 18. Findings of the right heart catheterization: Pressures PA 60/21, mean of 36, PCW 21, RV 50/9, mean of 14, RA 11, large V waves suggestive of mitral regurgitation noted. Saturations, PA 68.5%, aorta 94.8% on room air. Calculations, systolic pressure in the aorta is 160, systolic pressure in the LV is 195. Mean gradient is 35. Thermodilution cardiac output 4.95 liters per minute. Cardiac index 3.32 liters per minute/sq m. Cardiac output by Hiram method is 4.04 liters per minute. Cardiac index is 2.68 liters per minute/sq m. Calculated aortic valve area by thermodilution method is 0.83 sq cm, by Hiram method is 0.7 sq cm. IMPRESSION: 1. Coronary artery disease as described above, however, all the grafts are patent. No further coronary intervention required. 2. Severe aortic stenosis. 3. Severe pulmonary hypertension. 4. Moderate mitral regurgitation. Recommend TAVR evaluation after GI workup is completed. Carlos Buchanan MD
== END 2017-05-04 15:00 | disposition short-term general hospital (02) | DRG 287 ==
LOC: C.ER 08:43 → C.9E 10:22 → C.3T 10:54 → C.6T 13:57
PROVIDERS: ADMIT Internal Medicine Cardiovascular Disease; ATTEND Internal Medicine Cardiovascular Disease
PROC: 0DJD8ZZ Inspection of Lower Intestinal Tract, Via Natural or Artificial Opening Endoscopic (ICD-10-PCS; 2017-05-01)
PROC: 4A023N8 Measurement of Cardiac Sampling and Pressure, Bilateral, Percutaneous Approach (ICD-10-PCS; principal; 2017-05-03)
PROC: B211YZZ Fluoroscopy of Multiple Coronary Arteries using Other Contrast (ICD-10-PCS; 2017-05-03)
PROC: B212YZZ Fluoroscopy of Single Coronary Artery Bypass Graft using Other Contrast (ICD-10-PCS; 2017-05-03)
PROC: B218YZZ Fluoroscopy of Left Internal Mammary Bypass Graft using Other Contrast (ICD-10-PCS; 2017-05-03)
PROC: B216YZZ Fluoroscopy of Right and Left Heart using Other Contrast (ICD-10-PCS; 2017-05-03)
PROC: 30233N1 Transfusion of Nonautologous Red Blood Cells into Peripheral Vein, Percutaneous Approach (ICD-10-PCS; 2017-05-04)
DX: I35.0 Nonrheumatic aortic (valve) stenosis (principal); I27.20 Pulmonary hypertension, unspecified; I24.8 Other forms of acute ischemic heart disease; I80.9 Phlebitis and thrombophlebitis of unspecified site; E11.9 Type 2 diabetes mellitus without complications; D50.0 Iron deficiency anemia secondary to blood loss (chronic); K92.1 Melena; E03.9 Hypothyroidism, unspecified; E78.00 Pure hypercholesterolemia, unspecified; I10 Essential (primary) hypertension; Z95.1 Presence of aortocoronary bypass graft; R55 Syncope and collapse; K21.9 Gastro-esophageal reflux disease without esophagitis; I34.0 Nonrheumatic mitral (valve) insufficiency; K57.30 Diverticulosis of large intestine without perforation or abscess without bleeding; D17.5 Benign lipomatous neoplasm of intra-abdominal organs; K64.0 First degree hemorrhoids; Z79.4 Long term (current) use of insulin; I25.10 Atherosclerotic heart disease of native coronary artery without angina pectoris